=== PATIENT | female | born 1950 | race Caucasian/White ===

== ENCOUNTER 2016-07-24 22:41 | Emergency (ER) | payer OTHER, MEDICARE ==
[~2016-07-24] VITALS: Ht 160 cm; Wt 56.0 kg
[~2016-07-24 22:41] MED LIST: EYED; NXM/40 PO
[2016-07-24 22:43] VITALS: Ht 160 cm; Wt 56.0 kg
--- NOTE | 2016-07-25 00:18 | EMERGENCY ROOM VISIT NOTE ---
ED Visit Note First contact with patient: 23:00 Chief complaint: Right ankle pain. HPI: This 66-year-old white female presents to the emergency room for evaluation of her right ankle. The patient injured the ankle earlier this evening when she rolled her ankle 2 and inverted position. She had immediate onset of pain laterally. Swelling has developed. She denies any snaps or pops. Since that time, they have had persistent pain over the lateral portion of the ankle. They deny any numbness or tingling. Pain is worse with weight- bearing. She has been walking with a limp. no knee or hip pain. Treatment has consisted of ice provided in the ER. No prior history of significant ankle injury. Pain is 8/10. A male business continuity global director accompanies her today. REVIEW OF SYSTEM: HEENT: No dizziness, visual problems, hearing loss, tinnitus. There is no difficulty swallowing and no oral lesions are present. PULMONARY: No cough, shortness of breath, sputum production or hemoptysis. CARDIOVASCULAR: No chest pain, palpitations, shortness of breath or peripheral edema. GASTROINTESTINAL: No diarrhea, constipation, nausea, vomiting, or abdominal pain. GENITOURINARY: No dysuria, frequency, urgency or nocturia. NEUROLOGIC: No weakness, muscle tenderness, epilepsy or history of neurological problems. MUSCULOSKELETAL: No history of joint tenderness/swelling. No history of arthritis or arthralgias. SKIN: No rashes or lesions. PSYCHIATRIC: No history of depression or mental illness. ENDOCRINE: No history of diabetes, thyroid disorders, abnormal hair growth. PAST MEDICAL HISTORY: Supplemental sheet was reviewed and signed. Previous surgeries: None Medical history: Benign Current medications: None Allergies: Penicillin, sulfa drugs Family history: Noncontributory Social history: Retired. No tobacco use, positive EtOH use. PHYSICAL EXAM: Vitals: Afebrile. Reviewed and filed in patient's chart General: Well-developed, well-nourished, elderly white female, in obvious discomfort. No acute distress. She is sitting on a bed. Alert and oriented. Skin:Warm and dry with good turgor. No rashes or lesions. No erythema. The patient is not diaphoretic. No abrasions. Edema is present over the lateral ankle and midfoot. Musculoskeletal: Right ankle evaluation reveals no pain with palpation across the knee or proximal tibia or fibula. There is pain with palpation over the lateral malleolus and the lateral ligaments. No pain over the medial malleolus or deltoid ligament. Achilles' tendon is palpated to its entirety and found to be intact and without defect. Normal [place] test. No pain with palpation of the calcaneus, fifth metatarsal base, midfoot, forefoot, or toes. Motor function to the toes is intact and unremarkable. Motor function to the ankle is intact but range of motion is limited by pain. Strength is 5/5 for resisted motion. Positive anterior drawer, negative calcaneal tilt. Neurologic: Gross sensation is intact across all aspects of the foot and ankle via soft touch. Peripheral pulses are 2+. Data: Radiographic images of the ankle were obtained today and were reviewed by me as well as radiology. They are unremarkable for fracture or other bony abnormality. IMPRESSION: Right ankle sprain. PLAN: The patient was educated regarding today's findings. Conservative care measures were discussed. Patient was given compressigrip for edema control and will use this for the next 5 days. Ankle gel splint was also applied and will be used for support for the next 3 weeks. It may be removed for bathing and sleep. It should be used for a few additional weeks for sporting events only. Crutches were fitted and crutch instruction was reviewed. Discontinue crutch use when she is able to walk without a limp. Weight-bear as tolerable. Gentle motion daily. Ice and elevate intermittently over the next 3 days, after which they may switch to moist heat. Lower leg should be elevated at night during sleep. Tylenol and ibuprofen every 6 hours as needed for discomfort. Sprain handout was provided. Return to the ER for any acute changes. Follow-up with their PCP or orthopedist if not improving in 5 to 7 days. Current/Historical Medications Scheduled Esomeprazole Magnesium (Nexium), 40 MG PO DAILY Miscellaneous Medications Eye Drops (Eye Drops) Allergies Coded Allergies: Penicillins (Verified Allergy, Mild, UNKNOWN, 12/09/11) Sulfa Drugs (Verified Allergy, Mild, UNKNOWN, 12/09/11) Vital Signs Date Time Temp Pulse Resp B/P (MAP) Pulse Ox O2 Delivery O2 Flow Rate FiO2 07/24/16 22:43 36.6 76 16 155/88 100 Room Air Departure Information Impression Primary Impression: Right ankle sprain Dispostion Home / Self-Care Forms HOME CARE DOCUMENTATION FORM, MOTRIN USE, TYLENOL USE, IMPORTANT VISIT INFORMATION Patient Instructions [facility] Additional Instructions Use crutches until you can walk without a limp- weight-bear as tolerable Ice and elevate intermittently x3 days, and then use moist heat Tylenol and ibuprofen every 6 hours as needed for pain Gentle motion daily See your PCP or orthopedist if not improving over 5-7 days Use gel splint at all times other than bathing and sleep for 4 weeks, and then use it for an additional 2 weeks for any sporting activity
[2016-07-25 00:26] VITALS: BP 129/83; PULSE 71; TEMP 36.6; O2SAT 97
--- NOTE | 2016-07-25 06:38 | DIAGNOSTIC IMAGING REPORT ---
RIGHT ANKLE MIN 3 VIEWS ROUTINE CLINICAL HISTORY: Right ankle pain COMPARISON: None. DISCUSSION: No fractures or dislocations are visualized. There is an equivocal small joint effusion. IMPRESSION: Equivocal small joint effusion. No fractures are visualized. Electronically signed by: Dawit Tabor M.D. 07/25/2016 6:37 AM Dictated Date/Time: 07/25/2016 6:37 AM
== END 2016-07-25 00:27 | disposition home or self-care (01) ==
LOC: C.EDB 22:42 → C.EDC 07-25 00:27
DX: S93.401A Sprain of unspecified ligament of right ankle, initial encounter (principal); X58.XXXA Exposure to other specified factors, initial encounter; Z88.0 Allergy status to penicillin; Z88.2 Allergy status to sulfonamides

== ENCOUNTER → 2016-12-07 | Outpatient (CLI) | payer OTHER, MEDICARE ==
--- NOTE | 2016-12-10 07:59 | MAMMOGRAPHY REPORT ---
BILATERAL DIGITAL SCREENING MAMMOGRAM WITH CAD: 12/07/2016 CLINICAL HISTORY: Routine screening. TECHNIQUE: Bilateral CC, MLO and repeat left MLO views were obtained. Current study was also evaluat ed with a Computer Aided Detection (CAD) system. COMPARISON: Comparison is made to exams dated: 11/15/2014 mammogram, 11/21/2015 mammogram, 11/05/2013 m ammogram, 11/03/2012 mammogram, 11/03/2011 mammogram, and 10/29/2010 mammogram - [facility] enter. BREAST COMPOSITION: There are scattered areas of fibroglandular density in both breasts. FINDINGS: No new suspicious mass, architectural distortion or cluster of suspicious microcalcificati ons is seen. IMPRESSION: ACR BI-RADS CATEGORY 1: NEGATIVE There is no mammographic evidence of malignancy. A 1 year screening mammogram is recommended. The pa tient will receive written notification of the results. Approximately 10% of breast cancers are not detected with mammography. A negative mammographic report should not delay biopsy if a clinically suggestive mass is present. Anette Mitchell M.D. ay/:12/07/2016 15:16:48 [employer] Home Associate: Ghazala Guzmna RT(R)(M), letter sent: Normal 1/2 BI-RADS Code: ACR BI-RADS Category 1: Negative
== END | disposition home or self-care (01) ==
LOC: C.MAMM 14:36
PROVIDERS: ATTEND Obstetrics & Gynecology
DX: Z12.31 Encounter for screening mammogram for malignant neoplasm of breast (principal)

== ENCOUNTER → 2016-12-10 | Outpatient (CLI) | payer OTHER, MEDICARE | END | disposition home or self-care (01) | LOC: C.PAPS 09:40 | PROVIDERS: ATTEND Obstetrics & Gynecology | DX: Z12.4 Encounter for screening for malignant neoplasm of cervix (principal); N95.2 Postmenopausal atrophic vaginitis ==

== ENCOUNTER → 2017-03-09 | Day surgery (SDC) | payer OTHER, MEDICARE ==
[2017-03-08 10:15] VITALS: BMI 22.0
[~2017-03-09] VITALS: Ht 160 cm; Wt 56.8 kg
[~2017-03-09] MED LIST changes: +ASPCH81X PO; +CLB/200 PO; +CYCL0.052 OPB; +DOXY50CA26 PO; +ESOM20CA PO; -EYED; +LATA0.5S OPB; +LIDOCAINE HCL 2% 2 ML VIAL (20MG/ML) ONE; +METO50TA7 PO; +METR0.754 TOP; +MULT1CAP53 PO; -NXM/40 PO; +ONDANSETRON INJ 2 MG/ML 2 ML VIAL IV PRN; +PROPOFOL IV EMULSION 10 MG/ML 20 ML VIAL IV ONE
[2017-03-09 13:32] VITALS: Ht 160 cm; Wt 56.8 kg
--- NOTE | 2017-03-09 13:58 | Endo History and Physical ---
History & Physical Date of Service: Mar 09, 2017. Chief Complaint: SCREENING FOR COLON CANCER Referring Physician: DR FERRARI History of Present Illness Patient presenting for colorectal cancer screening. She has no specific complaints today. Past Surgical History Hx Cardiac Surgery: No Hx Internal Defibrillator: No Hx Pacemaker: No Hx Abdominal Surgery: Yes (OVARIAN CYST REMOVAL) Hx of Implantable Prosthesis: No Hx Post-Op Nausea and Vomiting: No Hx Cancer Surgery: No Hx Thoracic Surgery: No Hx Orthopedic: No Hx Urinary Tract Surgery: No Family History None Social History Smoking Status: Never Smoker Hx Substance Use: No Hx Alcohol Use: Yes (ONE GLASS OF RED WINE DAILY) Allergies Coded Allergies: Penicillins (Verified Allergy, Mild, HIVES, 03/08/17) Sulfa Drugs (Verified Allergy, Mild, HIVES, 03/08/17) Current Medications Reported Home Medications Medications Dose Route/Sig Max Daily Dose Days Date Category Macular Health Formula (Multiple Vitamins W/ Minerals) 1 Cap Cap 1 Cap PO DAILY 03/09/17 Reported Aspirin Chewable (Aspirin) 81 Mg Chew 81 Mg PO DAILY WITH A MEAL 03/08/17 Reported CeleBREX (Celecoxib) 200 Mg Cap 200 Mg PO QPM 03/08/17 Reported Toprol-Xl (Metoprolol Succinate) 50 Mg Tabcr 50 Mg PO QPM 03/08/17 Reported Metrocream (Metronidazole (Topical)) 0.75 % Cre 1 Appln TOP DAILY PRN 03/08/17 Reported Doxycycline (Doxycycline (Monohydrate)) 50 Mg Cap 1 Cap PO DAILY PRN 03/08/17 Reported Xalatan 0.005% Oph Tona (Latanoprost) 0.005 % Tona 1 Drops OPB HS 03/08/17 Reported Restasis (Cyclosporine (Ophth)) 0.05 % Emu 1 Drop OPB BID 03/08/17 Reported Nexium (Esomeprazole Magnesium) 20 Mg Capcr 20 Mg PO QAM 03/08/17 Reported Vital Signs Weight (Kilograms): 56.82 Height (Feet): 5 Height (Inches): 3 Date Time Temp Pulse Resp B/P (MAP) Pulse Ox O2 Delivery O2 Flow Rate FiO2 03/09/17 13:32 36.6 81 16 148/89 (108) 100 Room Air Physical Exam General Appearance: no apparent distress Respiratory/Chest: Auscultation: breath sounds normal Cardiovascular: Heart Auscultation: RRR Abdomen: Inspection & Palpation: soft Assessment and Plan Patient to undergo colonoscopy for colorectal cancer screening. We have discussed the risks to include bleeding, infection, perforation and missed colonic polyps.
--- NOTE | 2017-03-09 14:29 | Discharge Instructions ---
Endoscopy Patient Instructions Date / Procedure(s) Performed Mar 09, 2017. Colonoscopy Allergy Information Coded Allergies: Penicillins (Verified Allergy, Mild, HIVES, 03/08/17) Sulfa Drugs (Verified Allergy, Mild, HIVES, 03/08/17) Discharge Date / Findings Mar 09, 2017. Diverticulosis of the sigmoid colon Hemorrhoids Medication Instructions Stopped Medication(s): ASPIRIN LAST DOSE 03/07/17 Reported Home Medications Medications Dose Route/Sig Max Daily Dose Days Date Category Macular Health Formula (Multiple Vitamins W/ Minerals) 1 Cap Cap 1 Cap PO DAILY 03/09/17 Reported Aspirin Chewable (Aspirin) 81 Mg Chew 81 Mg PO DAILY WITH A MEAL 03/08/17 Reported CeleBREX (Celecoxib) 200 Mg Cap 200 Mg PO QPM 03/08/17 Reported Toprol-Xl (Metoprolol Succinate) 50 Mg Tabcr 50 Mg PO QPM 03/08/17 Reported Metrocream (Metronidazole (Topical)) 0.75 % Cre 1 Appln TOP DAILY PRN 03/08/17 Reported Doxycycline (Doxycycline (Monohydrate)) 50 Mg Cap 1 Cap PO DAILY PRN 03/08/17 Reported Xalatan 0.005% Oph Tona (Latanoprost) 0.005 % Tona 1 Drops OPB HS 03/08/17 Reported Restasis (Cyclosporine (Ophth)) 0.05 % Emu 1 Drop OPB BID 03/08/17 Reported Nexium (Esomeprazole Magnesium) 20 Mg Capcr 20 Mg PO QAM 03/08/17 Reported Provider Instructions Activity Restrictions - No exercising or heavy lifting for 24 hours. - Do not drink alcohol the day of the procedure. - Do not drive a car or operate machinery until the day after the procedure. - Do not make any important decisions or sign important papers in 24 hours after the procedure. Following Day: - Return to full activity which may include returning to work/school. Diet Start your diet with liquids and light foods (jello, soup, juice, toast). Then eat your usual diet if not nauseated. Treatment For Common After Affects For mild abdominal pain, bloating, or excessive gas: - Rest - Eat lightly - Lie on right side Follow-Up Information Follow-up with DR FERRARI as scheduled Repeat colonoscopy in 10 years Anesthesia Information What You Should Know You have had a procedure that required some medicine to reduce anxiety and discomfort. This treatment is called moderate sedation. After receiving the treatment, you may be sleepy, but you will be able to breathe on your own. The effects of the treatment may last for several hours. Follow these instructions along with Activity/Diet recommendations noted above: * Do NOT do anything where dizziness or clumsiness would be dangerous. * Rest quietly at home today, then you can be up and about tomorrow. * Have a responsible person stay with you the rest of today. * You may have had an I.V. today. If so, you may take the dressing off later today. Recommendations Call your doctor if: * Trouble breathing * Continuous vomiting for more than 24 hours * Temperature above 101 degrees * Severe abdominal pain or bloating * Pain not relieved by pain medicine ordered * There is increased drainage or redness from any incision * A large amount of rectal bleeding greater than 2-3 tablespoons. (If you had a polyp/s removed or have hemorrhoids, a small amount of blood - from the rectum is to be expected.) * You have any unanswered questions or concerns. IN THE EVENT OF A SERIOUS EMERGENCY, GO TO THE NEAREST EMERGENCY ROOM Your discharge instructions were prepared by provider Vernon Villagomez. Patient Instructions Signature Page Ashley Puente Patient (or Guardian) Signature/Date: I have read and understand the instructions given to me by my caregivers. Caregiver/RN/Doctor Signature/Date: The above-named patient and/or guardian has received patient instructions on this date. + Original Patient Signature Page (only) stays with chart. Please make copy for patient.
--- NOTE | 2017-03-09 14:33 | GI REPORT ---
Procedure Date: 03/09/2017 2:06 PM Procedure: Colonoscopy Indications: Screening for colorectal malignant neoplasm Medicines: Monitored Anesthesia Care Complications: No immediate complications. Estimated blood loss: Minimal. Estimated Blood Loss: Estimated blood loss was minimal. Procedure: Pre-Anesthesia Assessment: - Prior to the procedure, a History and Physical was performed, and patient medications, allergies and sensitivities were reviewed. The patient's tolerance of previous anesthesia was reviewed. - The risks and benefits of the procedure and the sedation options and risks were discussed with the patient. All questions were answered and informed consent was obtained. - Patient identification and proposed procedure were verified prior to the procedure by the physician, the nurse and the special weapons unit officer. The procedure was verified in the procedure room. - Pre-procedure physical examination revealed no contraindications to sedation. - ASA Grade Assessment: II - A patient with mild systemic disease. - After reviewing the risks and benefits, the patient was deemed in satisfactory condition to undergo the procedure. - The anesthesia plan was to use monitored anesthesia care (MAC). - Immediately prior to administration of medications, the patient was re-assessed for adequacy to receive sedatives. - The heart rate, respiratory rate, oxygen saturations, blood pressure, adequacy of pulmonary ventilation, and response to care were monitored throughout the procedure. - The physical status of the patient was re-assessed after the procedure. After I obtained informed consent, the scope was passed under direct vision. Throughout the procedure, the patient's blood pressure, pulse, and oxygen saturations were monitored continuously. The scope was introduced through the anus and advanced to the terminal ileum. The colonoscopy was somewhat difficult due to significant looping and a tortuous colon. Successful completion of the procedure was aided by withdrawing the scope and replacing with the pediatric colonoscope, straightening and shortening the scope to obtain bowel loop reduction and applying abdominal pressure. The patient tolerated the procedure well. The quality of the bowel preparation was good. Findings: The digital rectal exam findings include non-thrombosed external hemorrhoids. Pertinent negatives include normal sphincter tone. The terminal ileum appeared normal. Normal cecal retroflexion A few medium-mouthed diverticula were found in the sigmoid colon. Internal hemorrhoids were found during retroflexion. The hemorrhoids were moderate. The exam was otherwise without abnormality. Impression: - Non-thrombosed external hemorrhoids found on digital rectal exam. - The examined portion of the ileum was normal. - Mild diverticulosis in the sigmoid colon. - Internal hemorrhoids. - The examination was otherwise normal. - No specimens collected. Recommendation: - Discharge patient to home (ambulatory). - Advance diet as tolerated today. - Repeat colonoscopy in 10 years for screening purposes. - Return to GI office PRN. Vernon Villagomez D.O. Vernon Villagomez, 03/09/2017 2:32:32 PM This report has been signed electronically. Note Initiated On: 03/09/2017 2:06 PM I attest to the content of the Intraoperative Record and orders documented therein, exceptions below
--- NOTE | 2017-03-09 15:01 | Anesthesiology Progress Note ---
Anesthesia Post Op Note Date & Time Mar 09, 2017 at 15:01 Vital Signs Pain Intensity: 0 Vital Signs Past 12 Hours Date Time Temp Pulse Resp B/P (MAP) Pulse Ox O2 Delivery O2 Flow Rate FiO2 03/09/17 14:47 61 18 135/86 (102) 100 Room Air 03/09/17 14:32 36.6 74 16 120/65 (83) 97 Room Air 03/09/17 13:32 36.6 81 16 148/89 (108) 100 Room Air Notes Mental Status: alert / awake / arousable, participated in evaluation Pt Amnestic to Procedure: Yes Nausea / Vomiting: adequately controlled Pain: adequately controlled Airway Patency, RR, SpO2: stable & adequate BP & HR: stable & adequate Hydration State: stable & adequate Anesthetic Complications: no major complications apparent
[2017-03-09 15:02] VITALS: BP 133/83; PULSE 56; O2SAT 96
== END | disposition home or self-care (01) ==
LOC: C.GI 12:48
PROVIDERS: ATTEND Internal Medicine Gastroenterology
DX: Z12.11 Encounter for screening for malignant neoplasm of colon (principal); Z79.82 Long term (current) use of aspirin; Z79.899 Other long term (current) drug therapy; K64.4 Residual hemorrhoidal skin tags; K57.30 Diverticulosis of large intestine without perforation or abscess without bleeding; K64.8 Other hemorrhoids

== ENCOUNTER 2022-08-25 13:23 | Inpatient (IN) ==
[2022-08-25] MEDS ORDERED: MAGNESIUM HYDROXIDE SUSP 30 ML UDC PO PRN (13:38)
[2022-08-25] MEDS ORDERED: ONDANSETRON INJ 2 MG/ML 2 ML VIAL IV PRN (13:38)
[2022-08-25] MEDS ORDERED: POLYETHYLENE (MIRALAX) 17 GM PACK PO PRN (13:38)
[2022-08-25] MEDS ORDERED: ALUMINUM/MAGNESIUM SUSP 30 ML UDC PO PRN (13:38)
[2022-08-25] MEDS ORDERED: ACETAMINOPHEN 325 MG TAB PO PRN (13:38)
--- NOTE | 2022-08-25 14:05 | History & Physical Report ---
Date of Service August 25, 2022 Assessment & Plan (1) Cellulitis of left foot: (2) Status post left foot surgery: (3) Failure of outpatient treatment: (4) Hyponatremia: (5) Anemia: Plan This is a 72-year-old female with significant past medical history of paroxysmal ventricular tachycardia, PVC, rosacea, HTN and osteopenia who presents for direct admission secondary to left foot cellulitis. Pt is s/p Left Foot First Tarsometatarsal Fusion with Lapiplasty plates, Second Paco osteotomy, Second DuVries arthroplasty, Second Extensor tendon lengthening, capsulotomy second metatarsal phalangeal joint on 07/30/22. Approx 5 days Ago noted increased swelling, redness and drainage at surgical incision site and dorsal aspect of left foot. Was seen in urgent care on 08/22 and wound culture was obtained growing Enterococcus sensitive to ampicillin and vancomycin. Dr. Hoffman placed patient on Keflex without improvement, she has failed outpatient antibiotic therapy and therefore being admitted for IV antibiotics. Left foot cellulitis Status post left foot surgery on 07/30/2022 Failure of outpatient Patient directly admitted to medical Consult Dr. Hoffman - discussed case with him prior to patient arrival Wound culture per outpatient setting growing Enterococcus, sensitive to ampicillin and vancomycin We will start patient on IV vancomycin Baseline labs obtained Per patient imaging obtained as outpatient on 08/23 ESR and CRP are normal, will defer further imaging to Dr. Hoffman Patient is able to bear weight on left foot with boot in place Consult wound care Obtain blood culture and wound culture Hyponatremia Sodium 131 Patient also with elevation in BUN and ratio Slightly on dry side We will give 1 L of IV fluid, repeat BMP in a.m. Anemia Obtain anemia panel in a.m. Per operative report blood loss to 2ml no s/sx of bleeding HTN Continue losartan Hyperlipidemia Continue statin Rosacea On doxycycline as outpatient, will hold while on IV antibiotic DVT ppx: SQ Lovenox Dispo: admit to medical, Dr. Hoffman to see in am. FULL CODE PCP: Dr. Kerr Pt was seen and examined in collaboration with Dr. Jones, please see addendum A total of 75 was spent coordinating, documenting, and providing care for this patient excluding time spent in the performance of separately billed services. This included personally viewing all current laboratories and imaging studies, medication reconciliation, outpatient chart review, and discussion with specialists. History of Present Illness Chief Complaint: Direct admission for L foot cellulitis Primary Care Provider: Francesca Cotton PA-C This is a 72-year-old female with significant past medical history of paroxysmal ventricular tachycardia, PVC, rosacea, HTN and osteopenia who presents for direct admission secondary to left foot cellulitis. Of significance patient underwent orthopedic procedure on 07/30/[address] Hoffman with a left foot first tarsometatarsal fusion with Lapiplasty plates, second Paco osteotomy, second Leela arthroplasty, second extensor tendon lengthening, capsulotomy second metatarsal phalangeal joint, modified Ordonez hallux valgus correction and first metatarsal phalangeal joint cheilectomy. Patient was seen in urgent care on 08/22 secondary to redness, warmth, drainage and swelling to the left foot. Symptoms started 5 days prior to ED evaluation. She was started on oral doxycycline and culture was obtained. According to outpatient records cultures positive for Enterococcus sensitive to ampicillin and vancomycin. Dr. Hoffman contacted hospitalist economic manager for direct admission for failed outpt treatment for cellulitis. Per Dr. Hoffman pt was also trialed on keflex without significant improvement. According to patient approximately 5 days ago she noticed increased swelling, redness and drainage from her incision site over the top of her left foot. She tried to contact Dr. Hoffman and after rechecking on Tuesday was told to take dressing off. After being seen in urgent care she was prescribed doxycycline; however, she then received a phone call from Dr. Hoffman and was prescribed Keflex. She never did start the doxycycline and has since been on Keflex without any improvement. She feels overall her foot may be a little bit more swollen and red since starting the Keflex. She was seen in clinic on 08/23 and per patient x-rays were obtained. Due to worsening symptoms she was referred here. She is currently ambulating with boot in place. She denies any fever, chills, sweats, lightheadedness, dizziness, chest pain, shortness breath, nausea, vomiting, abdominal pain. Allergies Allergy/AdvReac Type Severity Reaction Status Date / Time Penicillins Allergy Intermediate HIVES Verified 07/30/22 06:23 Sulfa (Sulfonamide Allergy Intermediate HIVES Verified 07/30/22 06:23 Antibiotics) Home Medications Medication Instructions Recorded Confirmed Type carvedilol 6.25 mg tablet 6.25 mg PO BID 01/03/21 08/25/22 History cyclosporine 0.05 % eye drops in a 1 drp ophthalmic (eye) DIRECTED 01/03/21 08/25/22 History dropperette (Restasis) PRN Dry Eyes doxycycline hyclate 50 mg capsule 50 mg PO QAM 01/03/21 08/25/22 History losartan 25 mg tablet 50 mg PO BID 01/03/21 08/25/22 History [id number] 5 mg-zeaxanth 1 cap PO QAM 01/03/21 08/25/22 History 1 mg-bilberry 7.5 mg-herbal capsule ([facility] Formula) rosuvastatin 10 mg tablet 20 mg PO HS 01/03/21 08/25/22 History oxyquinoline 0.025 %-sodium lauryl See Rx Instructions vaginal 07/15/22 08/25/22 Rx sulfate 0.01 % vaginal gel .COMPLEX #113.4 grams (Trimo-Ha Jelly) celecoxib 200 mg capsule (Celebrex) 200 mg PO QAM 07/27/22 08/25/22 History cholecalciferol (vitamin D3) 50 50 mcg PO QAM 07/27/22 08/25/22 History mcg (2,000 unit) capsule (Vitamin D3) timolol maleate 1 dose ophthalmic (eye) BID 07/27/22 08/25/22 History Past Med/Surg History Medical History Atypical squamous cells of undetermined significance (ASC-US) on cervical Pap smear 02/01/01 Glaucoma Herpes simplex HLD (hyperlipidemia) HTN (hypertension) Non-compaction cardiomyopathy see [facility] cardio records, pt without advised ICD, follows with Tio Sutherland PA-C. PVCs (premature ventricular contractions) Surgical History H/O abdominoplasty H/O colposcopy with cervical biopsy H/O LEEP [facility] 2001 H/O ovarian cystectomy History of colonoscopy History of cryosurgery S/P removal of lung right middle lobectomy for suspicious nodule. unable to biopsy due to location. benign Family History Father Stroke syndrome Mother Thrombophlebitis Denies family history of Ovarian cancer Breast cancer Colorectal cancer Uterine cancer Social History Smoking Status: Never smoker Second Hand Exposure: No; Do You Dip or Chew Tobacco: No; Hx Alcohol Use: Yes Alcohol type: wine Hx Substance Use: No Preferred Language: Sinhala Communication Ability: Effective Cell Room Operator Required: No Beliefs That Will Affect Care: None Current Living Situation: Spouse Other Information That Helps Us Care for You: Yes Feels Safe at Home: Yes Safety Concerns: Feels Safe At This Time Assistive Devices: Contacts Review of Systems Review of Systems: All systems reviewed & are unremarkable except as noted in HPI & below Physical Exam Physical Exam: Constitutional: WD/WN, vitals as above, NAD, sitting up in bed, pleasant, conversing easily Head: Normocephalic, Atraumatic Eyes: PERRL, conjunctivae normal, anicteric sclerae ENMT: external ear and nose normal, oropharynx normal Neck: trachea midline, no thyromegaly normal visual inspection Respiratory: normal respiratory effort, lungs clear to auscultation, no wheeze, rales, rhonchi. Normal insp/exp effort, no accessory muscle use Cardiovascular: RRR, no murmur, no edema Vessels: no JVD or carotid bruit Chest: normal inspection of chest Abdomen: normal bowel sounds, soft, nontender, no hepatosplenomegaly Musculoskeletal: no cyanosis or clubbing, extremities motor strength 5/5 Skin: no rashes, warm and dry normal turgor +incision x 4 dorsum of left found with purulent drainage, erythema, warmth, bruising to medial malleolar region with streaking to proximal tibial area Neurologic: PERRL, EOMI, accommodation nl, no face palsy, no dysarthria CN's II-XI intact bilaterally and moves all extremities Psychiatric: A+Ox3, euthymic affect Lymphatic: no cervical or axillary lymphadenopathy : deferred Results & Data Results & Data Vital Signs (Past 12 Hours) Vital Signs Temp Pulse Resp BP Pulse Ox O2 Del Method 36.6 C 76 16 119/80 100 Room Air 08/25/22 14:55 08/25/22 14:55 08/25/22 14:55 08/25/22 14:55 08/25/22 14:55 08/25/22 14:55 Laboratory Results Short CBC 08/25/22 Range/Units 15:16 WBC 9.36 (4.8-10.8) K/ul Hgb 11.7 L (12.0-16.0) g/dl Hct 34.5 L (37.0-47.0) % Plt Count 305 (130-400) K/uL BMP 08/25/22 15:25 Sodium 131 L Potassium 4.2 Chloride 98 Carbon Dioxide 26 BUN 24 H Creatinine 1.06 Glucose 93 Calcium 9.5 Liver Function 08/25/22 Range/Units 15:25 Total Bilirubin 0.6 (0.2-1.0) mg/dl AST 18 (13-39) U/L ALT 14 (7-52) U/L Alkaline Phosphatase 34 (34-104) U/L Albumin 4.7 (3.4-5.0) gm/dl Medications Administered Current Inpatient Medications Acetaminophen (Acetaminophen 325 Mg Tab) 650 mg PO Q4H PRN PRN Reason: pain/fever Stop: 09/24/22 13:37 Al Hydrox/Mg Hydrox/Simethicone (Aluminum/Magnesium Susp 30 Ml Udc) 30 ml PO Q6H PRN PRN Reason: Dyspepsia Stop: 09/24/22 13:37 Carvedilol (Carvedilol 6.25 Mg Tab) 6.25 mg PO BIDM LAURY Stop: 09/24/22 16:59 Enoxaparin Sodium (Enoxaparin Inj 40 Mg/0.4 Ml Syr) 40 mg SQ HS LAURY Stop: 09/24/22 20:59 Losartan Potassium (Losartan Potassium 50 Mg Tab) 50 mg PO BID LAURY Stop: 09/24/22 20:59 Magnesium Hydroxide (Magnesium Hydroxide Susp 30 Ml Udc) 30 ml PO Q6H PRN PRN Reason: Constipation Stop: 09/24/22 13:37 Miscellaneous (Cyclosporine [Restasis] ~ Order Awaiting Action) 1 each N/A QS LAURY Stop: 09/24/22 15:59 Ondansetron HCl (Ondansetron Inj 2 Mg/Ml 2 Ml Vial) 4 mg IV Q6H PRN PRN Reason: Nausea Stop: 09/24/22 13:37 Polyethylene Glycol (Polyethylene (Miralax) 17 Gm Pack) 17 gm PO DAILY PRN PRN Reason: Constipation Stop: 09/24/22 13:37 Rosuvastatin Calcium (Rosuvastatin Calcium 20 Mg Tab) 20 mg PO HS LAURY Stop: 09/24/22 20:59 Timolol Maleate (Timolol Maleate 0.25% Op Soln 5 Ml Btl) 1 drops OP BID LAURY Stop: 09/24/22 20:59 Vitamin D (Cholecalciferol 1,000 Units 25 Mcg Tab) 2,000 units PO QAM LAURY Stop: 09/25/22 08:59 Code Status & VTE Plan Code Status FULL CODE Supervising Physician Co-Signing Physician Notes Patient seen and examined independently. Discussed with above provider. Patient was directly admitted for concern of cellulitis. She had undergone left Foot First Tarsometatarsal Fusion with Lapiplasty plates, Second Paco osteotomy, Second DuVries arthroplasty, Second Extensor tendon lengthening, capsulotomy second metatarsal phalangeal joint on 07/30/22. Was seen in urgent care on 08/22 and wound culture was obtained growing Enterococcus sensitive to ampicillin and vancomycin. Dr. Hoffman placed patient on Keflex without improvement, she has failed outpati ent antibiotic therapy and therefore being admitted for IV antibiotics. Outpatient x-ray done; no significant finding. CRP and ESR normal; less likely abscess or osteomyelitis. Started on IV vancomycin Wound care consult Appreciate orthopedic input.
[2022-08-25 16:18] LABS: Alanine Aminotransferase 14 U/L (7-52); Albumin Globulin Ratio 2.1 (0.9-2); Albumin Level 4.7 gm/dl (3.4-5.0); Alkaline Phosphatase 34 U/L (34-104); Anion Gap 7 (3-11); Aspartate Aminotransferase 18 U/L (13-39); BUN Creatinine Ratio 22.6 (10-20); Bilirubin,Total 0.6 mg/dl (0.2-1.0); Blood Urea Nitrogen 24 mg/dl (6-23); C Reactive Protein < 0.50 mg/dl (0-0.5); Calcium 9.5 mg/dl (8.6-10.3); Carbon Dioxide 26 mmol/L (21-32); Chloride 98 mmol/L (98-107); Creatinine Clr Calc Pharmacy 41.8 ml/min; Est GFR (African American) 59.9 ml/min; Est GFR (Non-African American) 51.7 ml/min; Globulin 2.2 gm/dl (2.5-4.0); Glucose 93 mg/dl (70-99(Fasting)); Potassium 4.2 mmol/L (3.5-5.1); Sodium 131 mmol/L (136-145); Total Protein 6.9 gm/dl (6.0-8.3)
[2022-08-25 16:38] LABS: Basophils # (auto) 0.05 K/uL (0-0.2); Basophils % (auto) 0.5 %; Eosinophils # (auto) 0.68 K/uL (0-0.50); Eosinophils % (auto) 7.3 %; Hematocrit (blood only) 34.5 % (37.0-47.0); Hemoglobin 11.7 g/dl (12.0-16.0); Immature Granulocytes # (auto) 0.02 K/uL (0.01-0.20); Immature Granulocytes % (auto) 0.2 %; Lymphocytes # (auto) 1.72 K/uL (1.2-3.4); Lymphocytes % (auto) 18.4 %; Mean Corpuscular Hemoglobin 29.8 pg (25.0-34.0); Mean Corpuscular Hgb Conc 33.9 g/dL (32.0-36.0); Mean Corpuscular Volume 87.8 fL (80.0-100.0); Monocytes # (auto) 0.83 K/uL (0.11-0.59); Monocytes % (auto) 8.9 %; Neutrophils # (auto) 6.06 K/uL (1.40-6.50); Neutrophils % (auto) 64.7 %; Platelet Count 305 K/uL (130-400); RDW Coefficient of Variation 12.5 % (11.5-14.5); RDW Standard Deviation 40.3 fL (36.4-46.3); Red Blood Count 3.93 M/uL (4.20-5.40); White Blood Count 9.36 K/ul (4.8-10.8)
[2022-08-25] MEDS ORDERED: VANCOMYCIN CONSULT ACTIVE PRN (16:55)
[2022-08-25] MEDS ORDERED: SODIUM CHLORIDE 0.9% 1000ML 1,000 ML IV SCH ×2 (16:56→17:00)
[2022-08-25] MEDS ORDERED: carvediloL 6.25 MG TAB PO SCH (17:00)
[2022-08-25] MEDS ORDERED: oxyCODONE HCL IR 5 MG TAB (IMMEDIATE RELEASE) PO PRN (17:09)
[2022-08-25] MEDS ORDERED: VANCOMYCIN HCL 1,250 MG in SODIUM CHLORIDE 0.9% 250 ML IV ONE ×2 (17:15→19:00)
--- NOTE | 2022-08-25 19:19 | Pharmacy Report ---
Pharmacy PK ABX Note - Date of Service August 25, 2022 - Assessment and Plan Assessment 72 year old F receiving Vancomycin for treatment of left foot cellulitis. Pertinent microbiologic data includes: Unsuccessful outpatient treatment with Keflex 500mg QID starting on 08/22 (respective outpt wound culture grew Enterococcus sensitive to vancomycin and ampicillin), inpatient wound and blood cultures growing. Day # 1/? of IV antimicrobial therapy. Plan Vancomycin * Loading dose: 1250 mg IV x 1 * Maintenance dose: 1000 mg IV every 24 hours * Regimen is predicted to achieve target AUC/JONATHAN of 400-600 mg/L.hr * Level to be drawn at a later date if prolonged vancomycin use anticipated. Pharmacy will continue to follow and will adjust dose/frequency as necessary. Thank you. Pharmacy has transitioned to AUC monitoring for vancomycin. AUC/JONATHAN is the pre ferred PK/PD target and is associated with decreased risk of nephrotoxicity compared to traditional trough targets.
[2022-08-25] MEDS: ROSUVASTATIN CALCIUM 20 MG TAB PO SCH (22:14)
[2022-08-25] MEDS: TIMOLOL MALEATE 0.25% OP SOLN 5 ML BTL OP SCH (22:15)
[2022-08-25] MEDS: ENOXAPARIN INJ 40 MG/0.4 ML SYR SQ SCH ×2 (22:15→22:19)
[2022-08-25] MEDS: LOSARTAN POTASSIUM 50 MG TAB PO SCH (22:15)
[2022-08-25] MEDS: carvediloL 6.25 MG TAB PO SCH (22:15)
[2022-08-26] MEDS ORDERED: VANCOMYCIN HCL 1,000 MG in SODIUM CHLORIDE 0.9% 250 ML IV SCH (05:00)
[2022-08-26 06:14] LABS: BUN Creatinine Ratio 21.8 (10-20); Calcium 8.4 mg/dl (8.6-10.3); Creatinine Clr Calc Pharmacy 50.9 ml/min; Est GFR (African American) 76.1 ml/min; Est GFR (Non-African American) 65.6 ml/min
[2022-08-26 06:16] LABS: Basophils # (auto) 0.03 K/uL (0-0.2); Basophils % (auto) 0.4 %; Eosinophils # (auto) 0.59 K/uL (0-0.50); Eosinophils % (auto) 8.8 %; Hematocrit (blood only) 28.8 % (37.0-47.0); Hemoglobin 9.8 g/dl (12.0-16.0); Immature Granulocytes # (auto) 0.01 K/uL (0.01-0.20); Immature Granulocytes % (auto) 0.1 %; Lymphocytes # (auto) 2.42 K/uL (1.2-3.4); Lymphocytes % (auto) 36.1 %; Mean Corpuscular Hemoglobin 29.7 pg (25.0-34.0); Mean Corpuscular Volume 87.3 fL (80.0-100.0); Mean Platelet Volume 8.7 fL (9.4-12.4); Monocytes # (auto) 0.77 K/uL (0.11-0.59); Monocytes % (auto) 11.5 %; Neutrophils # (auto) 2.88 K/uL (1.40-6.50); Neutrophils % (auto) 43.1 %; Platelet Count 252 K/uL (130-400); RDW Coefficient of Variation 12.4 % (11.5-14.5); RDW Standard Deviation 40.2 fL (36.4-46.3)
[2022-08-26 06:32] LABS: Ferritin 122.6 ng/ml (8-388)
[2022-08-26 06:38] LABS: Folate (Folic Acid),Ser orPlas 13.19 ng/ml (>5.38)
[2022-08-26] MEDS ORDERED: ARTIFICIAL TEARS OP PRN (08:45)
[2022-08-26] MEDS: TIMOLOL MALEATE 0.25% OP SOLN 5 ML BTL OP SCH ×2 (09:05→20:48)
[2022-08-26] MEDS: LOSARTAN POTASSIUM 50 MG TAB PO SCH ×2 (09:06→20:47)
[2022-08-26] MEDS: carvediloL 6.25 MG TAB PO SCH ×2 (09:06→20:47)
[2022-08-26] MEDS: CHOLECALCIFEROL 1,000 UNITS 25 MCG TAB PO SCH (09:07)
--- NOTE | 2022-08-26 09:15 | Hospitalist Progress Note ---
Date of Service August 26, 2022 Assessment & Plan (1) Cellulitis of left foot: (2) Status post left foot surgery: (3) Failure of outpatient treatment: (4) Hyponatremia: (5) Anemia: Plan 72yoF with significant PMHx of paroxysmal ventricular tachycardia, PVC, rosacea, HTN and osteopenia who presents for direct admission secondary to left foot cellulitis after recent orthopedic procedure. Left foot cellulitis Status post left foot surgery on 07/30/2022 Failure of outpatient Patient directly admitted to medical Consulted Dr. Hoffman Wound culture per outpatient setting growing Enterococcus, sensitive to ampicillin and vancomycin, continue with Vanc. will defer further imaging to Dr. Hoffman Patient is able to bear weight on left foot with boot in place Consult wound care Follow blood culture and wound culture Hyponatremia Stable Anemia Stable HTN Continue losartan Hyperlipidemia Continue statin Rosacea On doxycycline as outpatient, will hold while on IV antibiotic DVT ppx: SQ Lovenox Dispo: med/surg. FULL CODE PCP: Dr. Kerr Admission and Anticipated Discharge Date Admission Date: August 25, 2022 Subjective Seen with partner at bedside. States she is doing well but wanted to point out the start of an itchy rash on the LLE. Declined a topical steroid stating it was not too bad. Denied fevers, chills or night sweats. Review of Systems Review of Systems: All systems reviewed & are unremarkable except as noted in Subjective Physical Exam Physical Exam: General: Alert, oriented. No acute distress Skin: maculopapular eruption on LLE near bandage Psych: Appropriate mood and affect Neuro: No gross deficits HEENT: NC/AT CV: RRR, Normal s1, s2. No murmurs appreciated Resp: Breath sounds clear bilaterally, no increased effort of breathing. No crackles/rhonchi/rales. Abdomen: Soft, nontender, nondistended. No guarding. No organomegaly appreciated. Extremities: No edema in lower extremities bilaterally. bandage on LLE Results & Data Results & Data Vital Signs (Past 12 Hours) Vital Signs Temp Pulse Pulse Resp BP BP Pulse Ox 08/26/22 07:01 36.5 C 67 16 148/85 H 99 08/26/22 05:34 66 133/80 08/25/22 22:11 76 159/94 H O2 Del Method 08/26/22 07:01 Room Air 08/26/22 05:34 08/25/22 22:11
--- NOTE | 2022-08-26 14:13 | Pharmacy Report ---
Pharmacy PK ABX Note - Date of Service August 26, 2022 - Assessment and Plan Assessment 72 year old F receiving Vancomycin for treatment of left foot cellulitis. Pertinent microbiologic data includes: Unsuccessful outpatient treatment with Keflex 500mg QID starting on 08/22 (respective outpt wound culture grew Enterococcus sensitive to vancomycin and ampicillin), inpatient wound culture shows pinpoint growth and blood cultures currently NGTD Day # 2 of IV antimicrobial therapy. Plan Vancomycin * Loading dose: 1250 mg IV x 1 * Maintenance dose: 1000 mg IV every 24 hours * Random level of 16.6 mg/L @ 1250 shows that above regimen could result in subtherapeutic levels. Increase to vancomycin 1000 mg IV q18 hours * Regimen is predicted to achieve target AUC/JONATHAN of 400-600 mg/L.hr * Level to be drawn at a later date if prolonged vancomycin use anticipated. Pharmacy will continue to follow and will adjust dose/frequency as necessary. Thank you. Pharmacy has transitioned to AUC monitoring for vancomycin. AUC/JONATHAN is the preferred PK/PD target and is associated with decreased risk of nephrotoxicity compared to traditional trough targets.
[2022-08-26] MEDS: ROSUVASTATIN CALCIUM 20 MG TAB PO SCH (20:47)
[2022-08-26] MEDS: ENOXAPARIN INJ 40 MG/0.4 ML SYR SQ SCH (20:49)
[2022-08-26] MEDS: VANCOMYCIN HCL 1,000 MG in SODIUM CHLORIDE 0.9% 250 ML IV SCH (23:16)
[2022-08-27 07:55] LABS: Creatinine Clr Calc Pharmacy 49.2 ml/min
[2022-08-27] MEDS: carvediloL 6.25 MG TAB PO SCH ×2 (08:07→21:43)
[2022-08-27] MEDS: LOSARTAN POTASSIUM 50 MG TAB PO SCH ×2 (08:07→21:44)
[2022-08-27] MEDS: CHOLECALCIFEROL 1,000 UNITS 25 MCG TAB PO SCH (08:07)
[2022-08-27] MEDS: TIMOLOL MALEATE 0.25% OP SOLN 5 ML BTL OP SCH ×2 (08:08→21:45)
[2022-08-27 09:03] LABS: Basophils # (auto) 0.04 K/uL (0-0.2); Basophils % (auto) 0.6 %; Eosinophils # (auto) 0.54 K/uL (0-0.50); Eosinophils % (auto) 8.5 %; Hematocrit (blood only) 30.6 % (37.0-47.0); Hemoglobin 10.5 g/dl (12.0-16.0); Immature Granulocytes # (auto) 0.02 K/uL (0.01-0.20); Immature Granulocytes % (auto) 0.3 %; Lymphocytes # (auto) 2.04 K/uL (1.2-3.4); Lymphocytes % (auto) 32.1 %; Mean Corpuscular Hemoglobin 29.7 pg (25.0-34.0); Mean Corpuscular Hgb Conc 34.3 g/dL (32.0-36.0); Mean Corpuscular Volume 86.4 fL (80.0-100.0); Monocytes # (auto) 0.76 K/uL (0.11-0.59); Neutrophils # (auto) 2.95 K/uL (1.40-6.50); Neutrophils % (auto) 46.5 %; Platelet Count 269 K/uL (130-400); RDW Coefficient of Variation 12.7 % (11.5-14.5); RDW Standard Deviation 40.5 fL (36.4-46.3); Red Blood Count 3.54 M/uL (4.20-5.40); White Blood Count 6.35 K/ul (4.8-10.8)
[2022-08-27 09:22] LABS: BUN Creatinine Ratio 19.6 (10-20); Calcium 8.8 mg/dl (8.6-10.3); Creatinine Clr Calc Pharmacy 45.7 ml/min; Est GFR (African American) 66.7 ml/min; Est GFR (Non-African American) 57.5 ml/min
--- NOTE | 2022-08-27 10:54 | Orthopedic Consultation ---
Date of Consultation August 26, 2022 Assessment & Plan (1) Cellulitis of left foot: Cellulitis improving on IV antibiotic therapy. Recommend conservative care with continued IV Vancomycin with continued improvement anticipated. Infectious disease consult recommended due to presence of indwelling hardware in sofar as preferred antibiotic agent, route and duration of therapy. May WBAT in walking boot. S/P left Foot First Tarsometatarsal Fusion with Lapiplasty plates, Second Paco osteotomy, Second DuVries arthroplasty, Second Extensor tendon lengthening, capsulotomy second metatarsal phalangeal joint on 07/30/22. Continue daily dressing changes after cleansing with solution of half hydrogen peroxide and half sterile saline. Dry well after application of cleansing solution. We will continue to follow with you. Thank you for the opportunity consult in the care of this patient. Milton Hoffman DO [facility] [place] (2) Status post left foot surgery: (3) Failure of outpatient treatment: History of Present Illness Reason for Consultation: Patient presented with approximately 4 to 5 days of worsening left foot pain with redness and swelling and failed outpatient Keflex 500 mg 1 p.o. 4 times daily for 48 hours and was then admitted to the hospitalist service for IV antibiotic therapy. My service was consulted by hospitalist service for orthopedic coverage. Attending Physician: Anni Quintana MD History of Present Illness Left foot pain and swelling for 4 to 5 days without fever or chills. Patient had recent surgery left foot mid July without incident until 4 to 5 days prior to admission. Patient was seen in urgent care and was placed on doxycycline. Dr. Hoffman changed prescription to Keflex 500 mg 1 p.o. 4 times daily and patient failed outpatient therapy. Patient was in a walking boot and was engaging in ice and elevation. Patient was then scheduled for IV therapy. No evidence of N/V/D. No chest pain or shortness of breath. No proximal swelling or calf tightness. Allergies Allergy/AdvReac Type Severity Reaction Status Date / Time Penicillins Allergy Intermediate HIVES Verified 07/30/22 06:23 Sulfa (Sulfonamide Allergy Intermediate HIVES Verified 07/30/22 06:23 Antibiotics) Home Medications Medication Instructions Recorded Confirmed Type carvedilol 6.25 mg tablet 6.25 mg PO BID 01/03/21 08/25/22 History cyclosporine 0.05 % eye drops in a 1 drp ophthalmic (eye) DIRECTED 01/03/21 08/25/22 History dropperette (Restasis) PRN Dry Eyes doxycycline hyclate 50 mg capsule 50 mg PO QAM 01/03/21 08/25/22 History losartan 25 mg tablet 50 mg PO BID 01/03/21 08/25/22 History hxnpyntj-szi-jqcpov 5 mg-zeaxanth 1 cap PO QAM 01/03/21 08/25/22 History 1 mg-bilberry 7.5 mg-herbal capsule ([facility] Formula) rosuvastatin 10 mg tablet 20 mg PO HS 01/03/21 08/25/22 History oxyquinoline 0.025 %-sodium lauryl See Rx Instructions vaginal 07/15/22 08/25/22 Rx sulfate 0.01 % vaginal gel .COMPLEX #113.4 grams (Trimo-Ha Jelly) celecoxib 200 mg capsule (Celebrex) 200 mg PO QAM 07/27/22 08/25/22 History cholecalciferol (vitamin D3) 50 50 mcg PO QAM 07/27/22 08/25/22 History mcg (2,000 unit) capsule (Vitamin D3) timolol maleate 1 dose ophthalmic (eye) BID 07/27/22 08/25/22 History Patient History Medical History Atypical squamous cells of undetermined significance (ASC-US) on cervical Pap smear 02/01/01 Glaucoma Herpes simplex HLD (hyperlipidemia) HTN (hypertension) Non-compaction cardiomyopathy see [facility] cardio records, pt without advised ICD, follows with Tio Sutherland PA-C. PVCs (premature ventricular contractions) Surgical History H/O abdominoplasty H/O colposcopy with cervical biopsy H/O LEEP [facility] 2001 H/O ovarian cystectomy History of colonoscopy History of cryosurgery S/P removal of lung right middle lobectomy for suspicious nodule. unable to biopsy due to location. 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 Previous closure with Monocryl and Dermabond still intact. Dermabond has peeled free. Local erythema improved compared to 48 hours prior. Mild warmth. Intermittent small bullae evident along the medial hindfoot and dorsal midfoot improved over the last 24 hours. Mild weeping and transudate evident. Pedal pulses palpable 2/4 bilateral. Range of motion of the toes limited due to forefoot and midfoot swelling. Sensation diminished slightly due to local turgor. No fluid collections. No obvious abscess. Skin: Warm dry and intact with the exception of the above changes to the left foot Neurologic: PERRL, EOMI, accommodation nl, no face palsy, no dysarthria Psychiatric: A+Ox3, euthymic affect Lymphatic: no cervical or axillary lymphadenopathy Results & Data Vital Signs (Past 12 Hours) Vital Signs Temp Pulse Resp BP Pulse Ox O2 Del Method 08/27/22 07:12 36.5 C 68 16 124/79 99 Room Air Laboratory Results Sed rate and CRP normal. The rest of the laboratories were reviewed. Diagnostic Findings No new imaging.
--- NOTE | 2022-08-27 11:14 | Orthopedic Progress Note ---
Date of Service August 27, 2022 Assessment & Plan (1) Cellulitis of left foot: Plan: Continue with conservative IV antibiotics. Recommend infectious disease consultation due to indwelling hardware. Cellulitis improving on IV antibiotic therapy. Recommend conservative care with continued IV Vancomycin with continued improvement anticipated. Infectious disease consult recommended due to presence of indwelling hardware insofar as preferred antibiotic agent, route and duration of therapy. May WBAT in walking boot. S/P left Foot First Tarsometatarsal Fusion with Lapiplasty plates, Second Paco osteotomy, Second DuVries arthroplasty, Second Extensor tendon lengthening, capsulotomy second metatarsal phalangeal joint on 07/30/22. Continue daily dressing changes after cleansing with solution of half hydrogen peroxide and half sterile saline. Dry well after application of cleansing solution. Will continue to follow with you. (2) Status post left foot surgery: (3) Failure of outpatient treatment: Admission and Anticipated Discharge Date Admission Date: August 25, 2022 Subjective Patient seen and examined at bedside. Appreciate input from wound care and hospitalist team. Patient admits to improvement of swelling and absence of itching of left foot since initiation of IV vancomycin therapy. Denied fevers, chills, nausea, vomiting, diarrhea, shortness of breath, chest pain or night sweats. Physical Exam Constitutional: WD/WN, vitals as above Eyes: PERRL, conjunctivae normal, anicteric sclerae ENMT: external ear and nose normal, oropharynx normal Neck: trachea midline, no thyromegaly Musculoskeletal: Dressing removed left foot noting decrease in transudate and weeping of the left foot. Marked improvement in swelling with decreased swelling and increasing evidence of skin wrinkles consistent with diminished edema. Sensation improved. Pedal pulses palpable. Sensation improving. Range of motion of the lesser toes and great toe improved compared to yesterday examination. Neurologic: PERRL, EOMI, accommodation nl, no face palsy, no dysarthria Psychiatric: A+Ox3, euthymic affect Lymphatic: no cervical or axillary lymphadenopathy Results & Data Vital Signs (Past 12 Hours) Vital Signs Temp Pulse Resp BP Pulse Ox O2 Del Method 08/27/22 07:12 36.5 C 68 16 124/79 99 Room Air Laboratory Results Laboratories reviewed. Positive Enterococcus cultures from outside facility. Normal sed rate and CRP. Diagnostic Findings No new imaging.
--- NOTE | 2022-08-27 17:10 | Hospitalist Progress Note ---
Date of Service August 27, 2022 Assessment & Plan (1) Cellulitis of left foot: (2) Status post left foot surgery: (3) Failure of outpatient treatment: (4) Hyponatremia: (5) Anemia: Plan 72yoF with significant PMHx of paroxysmal ventricular tachycardia, PVC, rosacea, HTN and osteopenia who presents for direct admission secondary to left foot cellulitis after recent orthopedic procedure. Left foot cellulitis Status post left foot surgery on 07/30/2022 Failure of outpatient Patient directly admitted to medical Consulted ortho/Dr. Hoffman Wound culture per outpatient setting growing Enterococcus, sensitive to ampicillin and vancomycin, continue with Vanc. ID consult for PO recs. will defer further imaging to Dr. Hoffman Patient is able to bear weight on left foot with boot in place Consult wound care blood culture and wound culture-NGTD Hyponatremia Stable Anemia Stable HTN Continue losartan Hyperlipidemia Continue statin Rosacea On doxycycline as outpatient, will hold while on IV antibiotic DVT ppx: SQ Lovenox Dispo: med/surg. FULL CODE PCP: Dr. Kerr Admission and Anticipated Discharge Date Admission Date: August 25, 2022 Subjective Pt seen this AM. Stable, noting improvement in L foot lesion. Denies fevers, chills, nught sweats Review of Systems Review of Systems: All systems reviewed & are unremarkable except as noted in Subjective Physical Exam Physical Exam: General: Alert, oriented. No acute distress Skin: maculopapular eruption on LLE stable Psych: Appropriate mood and affect Neuro: No gross deficits HEENT: NC/AT CV: RRR, Normal s1, s2. No murmurs appreciated Resp: Breath sounds clear bilaterally, no increased effort of breathing. No crackles/rhonchi/rales. Abdomen: Soft, nontender, nondistended. No guarding. No organomegaly appreciated. Extremities: LLE with noted swelling, closed wound. Results & Data Results & Data Vital Signs (Past 12 Hours) Vital Signs Temp Pulse Resp BP Pulse Ox O2 Del Method 08/27/22 15:15 36.5 C 71 16 136/77 99 Room Air 08/27/22 07:12 36.5 C 68 16 124/79 99 Room Air
[2022-08-27] MEDS: VANCOMYCIN HCL 1,000 MG in SODIUM CHLORIDE 0.9% 250 ML IV SCH (17:27)
[2022-08-27] MEDS: ROSUVASTATIN CALCIUM 20 MG TAB PO SCH (21:43)
[2022-08-27] MEDS: ENOXAPARIN INJ 40 MG/0.4 ML SYR SQ SCH (21:44)
[2022-08-28 06:46] LABS: Basophils # (auto) 0.03 K/uL (0-0.2); Basophils % (auto) 0.4 %; Eosinophils # (auto) 0.69 K/uL (0-0.50); Eosinophils % (auto) 9.5 %; Hematocrit (blood only) 30.4 % (37.0-47.0); Hemoglobin 10.2 g/dl (12.0-16.0); Immature Granulocytes # (auto) 0.02 K/uL (0.01-0.20); Immature Granulocytes % (auto) 0.3 %; Lymphocytes # (auto) 2.04 K/uL (1.2-3.4); Lymphocytes % (auto) 28.2 %; Mean Corpuscular Hemoglobin 29.1 pg (25.0-34.0); Mean Corpuscular Hgb Conc 33.6 g/dL (32.0-36.0); Mean Corpuscular Volume 86.6 fL (80.0-100.0); Mean Platelet Volume 8.9 fL (9.4-12.4); Monocytes # (auto) 0.74 K/uL (0.11-0.59); Monocytes % (auto) 10.2 %; Neutrophils # (auto) 3.71 K/uL (1.40-6.50); Neutrophils % (auto) 51.4 %; Platelet Count 257 K/uL (130-400); RDW Coefficient of Variation 12.6 % (11.5-14.5); RDW Standard Deviation 39.8 fL (36.4-46.3); Red Blood Count 3.51 M/uL (4.20-5.40); White Blood Count 7.23 K/ul (4.8-10.8)
[2022-08-28 06:58] LABS: Calcium 8.8 mg/dl (8.6-10.3); Creatinine Clr Calc Pharmacy 44.3 ml/min; Est GFR (African American) 64.3 ml/min; Est GFR (Non-African American) 55.5 ml/min; Potassium 4.2 mmol/L (3.5-5.1)
[2022-08-28] MEDS: LOSARTAN POTASSIUM 50 MG TAB PO SCH ×2 (08:31→21:17)
[2022-08-28] MEDS: CHOLECALCIFEROL 1,000 UNITS 25 MCG TAB PO SCH (08:32)
[2022-08-28] MEDS: TIMOLOL MALEATE 0.25% OP SOLN 5 ML BTL OP SCH ×2 (08:32→21:19)
[2022-08-28] MEDS: carvediloL 6.25 MG TAB PO SCH ×2 (08:32→21:18)
--- NOTE | 2022-08-28 11:13 | Orthopedic Progress Note ---
Date of Service August 28, 2022 Assessment & Plan (1) Cellulitis of left foot: Plan: Cleanse left foot daily with solution of half peroxide and half saline. Pat dry and then reapply soft sterile dressing to left foot. Continue with conservative care with continued IV antibiotics. Recommend infectious disease consultation due to indwelling hardware. Cellulitis improving on IV antibiotic therapy. Recommend conservative care with continued IV Vancomycin with continued improvement anticipated. Infectious disease consult recommended due to presence of indwelling hardware insofar as preferred antibiotic agent, route and duration of therapy. May WBAT in walking boot. S/P left Foot First Tarsometatarsal Fusion with Lapiplasty plates, Second Paco osteotomy, Second DuVries arthroplasty, Second Extensor tendon lengthening, capsulotomy second metatarsal phalangeal joint on 07/30/22. Continue daily dressing changes after cleansing with solution of half hydrogen peroxide and half sterile saline. Dry well after application of cleansing solution. Will continue to follow with you. (2) Status post left foot surgery: (3) Failure of outpatient treatment: Admission and Anticipated Discharge Date Admission Date: August 25, 2022 Subjective Seen and examined while patient resting comfortably in bed. Able to ambulate in the room with her walking boot on with some sensation of swelling without significant pain. Continued improvement in L foot pain and swelling Denies fevers, chills, nausea, vomiting, diarrhea, night sweats, shortness of breath or chest pain. Physical Exam Constitutional: WD/WN, vitals as above Eyes: PERRL, conjunctivae normal, anicteric sclerae ENMT: external ear and nose normal, oropharynx normal Neck: trachea midline, no thyromegaly Musculoskeletal: Left foot incisions intact. No evidence of transudate or weeping. Skin is warm, dry and otherwise intact. No evidence of abscess. Improving cellulitis and no streaking at this time. Range of motion of great toe and lesser toes improved compared to admission. Pedal pulses 2/4 palpable. Sensation improving. Calves soft and nontender bilateral. Skin: As noted above. Neurologic: PERRL, EOMI, accommodation nl, no face palsy, no dysarthria Psychiatric: A+Ox3, euthymic affect Lymphatic: no cervical or axillary lymphadenopathy Results & Data Vital Signs (Past 12 Hours) Vital Signs Temp Pulse Resp BP Pulse Ox O2 Del Method 07/15/23 08:29 36.7 C 70 18 114/76 98 Room Air Diagnostic Findings Labs reviewed.
[2022-08-28] MEDS: VANCOMYCIN HCL 1,000 MG in SODIUM CHLORIDE 0.9% 250 ML IV SCH (12:54)
--- NOTE | 2022-08-28 12:58 | XRay Report ---
XR foot LT min 3V routine CLINICAL HISTORY: Assess bone fusion and hardware. Left foot surgery. COMPARISON STUDY: Left foot intraoperative study 07/30/2022. FINDINGS: Cortical plate and screws transfixing the osteotomy at the base of the first metatarsal wit h fusion of the first tarsometatarsal joint. The hardware appears intact. No abnormal periprosthetic lucency. Callus formation adjacent to the hardware consistent with partial healing. There is a single screw through the neck of the second metatarsal which also demonstrates partial healing at this loca tion. Postoperative changes consistent with a prior bunionectomy an partial resection of the head of the second toe proximal phalanx. There is a healing/healed fracture at the left fifth toe proximal ph alanx. The Lisfranc joint is intact. No dislocation. Mild soft tissue swelling at the first MTP joint . IMPRESSION: 1. Postoperative changes as described above with partial healing at the first and second metatarsals. 2. There is also a healing/healed fracture the left fifth toe proximal phalanx. 3. No acute fracture or dislocation within the left foot. ACT 112: Negative or not required by law. Electronically signed by: Rob Milelr M.D. 08/28/2022 12:56 PM
--- NOTE | 2022-08-28 16:57 | Hospitalist Progress Note ---
Date of Service August 28, 2022 Assessment & Plan (1) Cellulitis of left foot: (2) Status post left foot surgery: (3) Failure of outpatient treatment: (4) Hyponatremia: (5) Anemia: Plan 72yoF with significant PMHx of paroxysmal ventricular tachycardia, PVC, rosacea, HTN and osteopenia who presents for direct admission secondary to left foot cellulitis after recent orthopedic procedure. On Vancomycin, awaiting ID recommendations for discharge. Left foot cellulitis Status post left foot surgery on 07/30/2022 Failure of outpatient Patient directly admitted to medical Consulted ortho/Dr. Hoffman Wound culture per outpatient setting growing Enterococcus, sensitive to ampicillin and vancomycin, continue with Vanc. ID consult for PO recs. will defer further imaging to Dr. Hoffman blood culture and wound culture-NGTD Awaiting ID recommendations for discharge Hyponatremia Stable Anemia Stable HTN Continue losartan Hyperlipidemia Continue statin Rosacea On doxycycline as outpatient, will hold while on IV antibiotic DVT ppx: SQ Lovenox Dispo: med/surg. FULL CODE PCP: Dr. Kerr Admission and Anticipated Discharge Date Admission Date: August 25, 2022 Subjective States that she has no complaints. Denies fevers, chills, night sweats. Awaiting ID consult. Review of Systems Review of Systems: All systems reviewed & are unremarkable except as noted in Subjective Physical Exam Physical Exam: General: Alert, oriented. No acute distress Skin: maculopapular eruption on LLE stable Psych: Appropriate mood and affect Neuro: No gross deficits HEENT: NC/AT CV: RRR, Normal s1, s2. No murmurs appreciated Resp: Breath sounds clear bilaterally, no increased effort of breathing. No crackles/rhonchi/rales. Abdomen: Soft, nontender, nondistended. No guarding. No organomegaly appre ciated. Extremities: LLE with noted swelling, closed wound. Results & Data Results & Data Vital Signs (Past 12 Hours) Vital Signs Temp Pulse Resp BP BP Pulse Ox O2 Del Method 08/28/22 15:14 36.6 C 67 16 130/80 100 Room Air 08/28/22 08:29 36.7 C 70 18 114/76 98 Room Air
[2022-08-28] MEDS: ROSUVASTATIN CALCIUM 20 MG TAB PO SCH (21:17)
[2022-08-28] MEDS: ENOXAPARIN INJ 40 MG/0.4 ML SYR SQ SCH (21:19)
[2022-08-29] MEDS ORDERED: VANCOMYCIN LEVEL ONE (04:00)
[2022-08-29 05:59] LABS: Basophils # (auto) 0.05 K/uL (0-0.2); Basophils % (auto) 0.7 %; Eosinophils % (auto) 10.4 %; Hematocrit (blood only) 31.1 % (37.0-47.0); Hemoglobin 10.6 g/dl (12.0-16.0); Immature Granulocytes # (auto) 0.01 K/uL (0.01-0.20); Immature Granulocytes % (auto) 0.1 %; Lymphocytes # (auto) 2.45 K/uL (1.2-3.4); Lymphocytes % (auto) 31.9 %; Mean Corpuscular Hemoglobin 29.7 pg (25.0-34.0); Mean Corpuscular Hgb Conc 34.1 g/dL (32.0-36.0); Mean Corpuscular Volume 87.1 fL (80.0-100.0); Mean Platelet Volume 8.9 fL (9.4-12.4); Monocytes # (auto) 0.82 K/uL (0.11-0.59); Monocytes % (auto) 10.7 %; Neutrophils # (auto) 3.55 K/uL (1.40-6.50); Neutrophils % (auto) 46.2 %; Platelet Count 249 K/uL (130-400); RDW Coefficient of Variation 12.6 % (11.5-14.5); Red Blood Count 3.57 M/uL (4.20-5.40); White Blood Count 7.68 K/ul (4.8-10.8)
[2022-08-29] MEDS: VANCOMYCIN HCL 1,000 MG in SODIUM CHLORIDE 0.9% 250 ML IV SCH ×2 (06:03→22:48)
[2022-08-29 06:17] LABS: BUN Creatinine Ratio 25.3 (10-20); Creatinine Clr Calc Pharmacy 53.4 ml/min; Est GFR (African American) 80.5 ml/min; Est GFR (Non-African American) 69.5 ml/min
[2022-08-29] MEDS: LOSARTAN POTASSIUM 50 MG TAB PO SCH ×2 (08:28→20:51)
[2022-08-29] MEDS: CHOLECALCIFEROL 1,000 UNITS 25 MCG TAB PO SCH (08:28)
[2022-08-29] MEDS: carvediloL 6.25 MG TAB PO SCH ×2 (08:28→20:50)
[2022-08-29] MEDS: TIMOLOL MALEATE 0.25% OP SOLN 5 ML BTL OP SCH ×2 (08:29→20:49)
--- NOTE | 2022-08-29 10:44 | Pharmacy Report ---
Pharmacy PK ABX Note - Date of Service August 29, 2022 - Assessment and Plan Assessment 08/29: Continues on vancomycin monotherapy. BCx NGTD. Foot culture (08/25) low counts mix ventura. Renal function stable. 08/26: 72 year old F receiving Vancomycin for treatment of left foot cellulitis. Pertinent microbiologic data includes: Unsuccessful outpatient treatment with Keflex 500mg QID starting on 08/22 (respective outpt wound culture grew Enterococcus sensitive to vancomycin and ampicillin), inpatient wound culture shows pinpoint growth and blood cultures currently NGTD Day # 2 of IV antimicrobial therapy. Plan Vancomycin * Vancomycin random level 13.5mcg/mL this AM (~16.5hr level). Predicted to achieve an AUCss of 442mg/L.hr with a 72% probability- therapeutic. * Continue vancomycin 1gm IV q18h. * Regimen is predicted to achieve target AUC/JONATHAN of 400-600 mg/L.hr * Will repeat in a level in 48-72h if vancomycin continued. Pharmacy will continue to follow and will adjust dose/frequency as necessary. Thank you. Pharmacy has transitioned to AUC monitoring for vancomycin. AUC/JONATHAN is the preferred PK/PD target and is associated with decreased risk of nephrotoxicity compared to traditional trough targets.
[2022-08-29] MEDS: ROSUVASTATIN CALCIUM 20 MG TAB PO SCH (20:51)
[2022-08-29] MEDS: ENOXAPARIN INJ 40 MG/0.4 ML SYR SQ SCH (20:55)
--- NOTE | 2022-08-29 21:37 | Hospitalist Progress Note ---
Date of Service August 29, 2022 Assessment & Plan (1) Cellulitis of left foot: (2) Status post left foot surgery: (3) Failure of outpatient treatment: (4) Hyponatremia: (5) Anemia: Plan 72yoF with significant PMHx of paroxysmal ventricular tachycardia, PVC, rosacea, HTN and osteopenia who presents for direct admission secondary to left foot cellulitis after recent orthopedic procedure. On Vancomycin, awaiting ID recommendations for discharge. Left foot cellulitis Status post left foot surgery on 07/30/2022 Failure of outpatient Patient directly admitted to medical Consulted ortho/Dr. Hoffman Wound culture per outpatient setting growing Enterococcus, sensitive to ampicillin and vancomycin, continue with Vanc. ID consult for PO recs. will defer further imaging to Dr. Hoffman if needed. blood culture and wound culture-NGTD Awaiting ID recommendations for discharge Hyponatremia Stable Anemia Stable HTN Continue losartan Hyperlipidemia Continue statin Rosacea On doxycycline as outpatient, will hold while on IV antibiotic DVT ppx: SQ Lovenox Dispo: med/surg. FULL CODE PCP: Dr. Kerr Admission and Anticipated Discharge Date Admission Date: August 25, 2022 Subjective States that she has no complaints. Denies fevers, chills, night sweats. Still awaiting ID consult. Review of Systems Review of Systems: All systems reviewed & are unremarkable except as noted in Subjective Physical Exam Physical Exam: General: Alert, oriented. No acute distress Psych: Appropriate mood and affect Neuro: No gross deficits HEENT: NC/AT CV: RRR, Normal s1, s2. No murmurs appreciated Resp: Breath sounds clear bilaterally, no increased effort of breathing. No crackles/rhonchi/rales. Abdomen: Soft, nontender, nondistended. No guarding. No organomegaly appreciated. Extremities: LLE with noted slight swelling, closed wound. Results & Data Results & Data Vital Signs (Past 12 Hours) Vital Signs Temp Pulse Resp BP Pulse Ox O2 Del Method 08/29/22 20:43 36.6 C 65 18 139/77 98 Room Air 08/29/22 14:56 36.4 C L 69 16 123/82 100 Room Air
[2022-08-30 06:12] LABS: Basophils # (auto) 0.06 K/uL (0-0.2); Basophils % (auto) 0.8 %; Eosinophils # (auto) 0.73 K/uL (0-0.50); Eosinophils % (auto) 9.5 %; Hematocrit (blood only) 31.5 % (37.0-47.0); Hemoglobin 10.8 g/dl (12.0-16.0); Immature Granulocytes # (auto) 0.03 K/uL (0.01-0.20); Immature Granulocytes % (auto) 0.4 %; Lymphocytes # (auto) 2.47 K/uL (1.2-3.4); Mean Corpuscular Hemoglobin 29.7 pg (25.0-34.0); Mean Corpuscular Hgb Conc 34.3 g/dL (32.0-36.0); Mean Corpuscular Volume 86.5 fL (80.0-100.0); Mean Platelet Volume 8.7 fL (9.4-12.4); Monocytes # (auto) 0.84 K/uL (0.11-0.59); Monocytes % (auto) 10.9 %; Neutrophils # (auto) 3.58 K/uL (1.40-6.50); Neutrophils % (auto) 46.4 %; Platelet Count 258 K/uL (130-400); RDW Coefficient of Variation 12.5 % (11.5-14.5); RDW Standard Deviation 39.8 fL (36.4-46.3); Red Blood Count 3.64 M/uL (4.20-5.40); White Blood Count 7.71 K/ul (4.8-10.8)
[2022-08-30 06:38] LABS: BUN Creatinine Ratio 24.5 (10-20); Calcium 8.9 mg/dl (8.6-10.3); Creatinine Clr Calc Pharmacy 47.1 ml/min; Est GFR (African American) 69.3 ml/min; Est GFR (Non-African American) 59.8 ml/min; Potassium 4.1 mmol/L (3.5-5.1)
[2022-08-30] MEDS: CHOLECALCIFEROL 1,000 UNITS 25 MCG TAB PO SCH (08:07)
[2022-08-30] MEDS: LOSARTAN POTASSIUM 50 MG TAB PO SCH ×2 (08:07→20:51)
[2022-08-30] MEDS: carvediloL 6.25 MG TAB PO SCH ×2 (08:07→20:51)
[2022-08-30] MEDS: TIMOLOL MALEATE 0.25% OP SOLN 5 ML BTL OP SCH ×2 (08:09→20:50)
--- NOTE | 2022-08-30 10:06 | Orthopedic Progress Note ---
Date of Service August 29, 2022 Assessment & Plan (1) Cellulitis of left foot: Plan: Cellulitis improving on IV antibiotic therapy. Left foot pain improving. Recommend conservative care with continued IV Vancomycin with continued improvement anticipated. Cleanse left foot daily with saline. Pat dry and then reapply soft sterile dressing to left foot. Continue with conservative care with continued IV antibiotics. Recommend infectious disease consultation due to indwelling hardware. Infectious disease consult recommended due to presence of indwelling hardware insofar as preferred antibiotic agent, route and duration of therapy. May WBAT in walking boot. S/P left Foot First Tarsometatarsal Fusion with Lapiplasty plates, Second Paco osteotomy, Second DuVries arthroplasty, Second Extensor tendon lengthening, capsulotomy second metatarsal phalangeal joint on 07/30/22. Continue daily dressing changes after cleansing with solution of half hydrogen peroxide and half sterile saline. Dry well after application of cleansing solution. Will continue to follow with you, anticipate discharge to home with continued antibiotic therapy per recommendation of infectious disease service. Patient to follow-up with established appointment in office next week. Thank you for the opportunity to consult in the care of this patient. Milton Hoffman DO [facility] orthopedic [place]. Office phone . (2) Status post left foot surgery: (3) Failure of outpatient treatment: Admission and Anticipated Discharge Date Admission Date: August 25, 2022 Subjective Patient with no new complaints. Has been up and walking in her room with her walking boot without discomfort. Denies fevers, chills, night sweats. Still awaiting ID consult, hopefully will occur on Tuesday (tomorrow). Physical Exam Constitutional: WD/WN, vitals as above Eyes: PERRL, conjunctivae normal, anicteric sclerae ENMT: external ear and nose normal, oropharynx normal Neck: trachea midline, no thyromegaly Musculoskeletal: Left foot with soft dressing which was removed for examination. Continued improvement in appearance of the left foot with decreased erythema, decreased edema and increased active range of motion of the great toe and lesser toes. Pedal pulses palpable 2/4 bilateral feet. Incisions are clean and dry without transudate or evidence of purulence. No abscess formation at this time. Minimal if any tenderness with palpation at the incision sites and across the forefoot. Light touch sensation improved with palpation. Calves are soft with negative Homans' sign. Neurologic: PERRL, EOMI, accommodation nl, no face palsy, no dysarthria Psychiatric: A+Ox3, euthymic affect Lymphatic: no cervical or axillary lymphadenopathy Results & Data Vital Signs (Past 12 Hours) Vital Signs Temp Pulse Resp BP Pulse Ox O2 Del Method 08/30/22 07:34 36.5 C 67 14 115/65 97 Room Air Diagnostic Findings Radiographs 3 views left foot demonstrate unchanged improved alignment status post previous first tarsometatarsal joint fusion with application of orthopedic plates and screws. Maintained correction of hallux valgus and stable correction of second hammertoe and second metatarsal osteotomy. Minimal soft tissue swelling appreciated. No evidence of fracture.
--- NOTE | 2022-08-30 12:58 | Hospitalist Progress Note ---
Date of Service August 30, 2022 Assessment & Plan (1) Cellulitis of left foot: (2) Status post left foot surgery: (3) Failure of outpatient treatment: (4) Hyponatremia: (5) Anemia: Plan 72yoF with significant PMHx of paroxysmal ventricular tachycardia, PVC, rosacea, HTN and osteopenia who presents for direct admission secondary to left foot cellulitis after recent orthopedic procedure. On Vancomycin, awaiting ID recommendations for discharge. Left foot cellulitis Status post left foot surgery on 07/30/2022 Failure of outpatient Patient directly admitted to medical Consulted ortho/Dr. Hoffman Wound culture per outpatient setting growing Enterococcus, sensitive to ampicillin and vancomycin, continue with Vanc. ID consult for recs which are still pending. I am in favor of finishing the course with PO abx and the patient prefers to avoid a PICC line. It is less likely that the hardware is infected blood culture and wound culture-NGTD Awaiting ID recommendations for discharge Hyponatremia resolved, no further workup. Anemia stable H/H and no bleeding, this is expected in post operative setting. HTN chronic, stable. Continue losartan Hyperlipidemia chronic, stable. Continue statin Rosacea On doxycycline as outpatient, will hold while on IV antibiotic. Restart at discharge. DVT ppx: SQ Lovenox Dispo: med/surg. FULL CODE PCP: Dr. Kerr I did contact Dr. Montelongo as Dr. Hoffman to discuss the case. After seeing the patient I contacted her back later in the evening to discuss what I had found out and update her. I spent a total [id number] coordinating, documenting, and providing care for this patient excluding time spent in the performance of separately billed services DO Dayan Benoit Hospitalist Admission and Anticipated Discharge Date Admission Date: August 25, 2022 Subjective 72-year-old female presented with left foot cellulitis status post left foot tarsometatarsal fusion with Lapiplasty plates, second Paco osteotomy, second reprise arthroplasty, second extensor tendon lengthening, capsulotomy second metatarsal phalangeal joint on 07/30/2022. Swelling redness and drainage at surgical site has cleared up with IV antibiotics over the weekend. Awaiting ID consult which occurred today however they are still uncertainty with respect to continuation of IV versus p.o. antibiotics. Discussed the case with Dr. Hoffman who is comfortable with IV vancomycin for 2 weeks. Per ID, they are waiting for a conversation with Dr. Hoffman to make a solid recommendation. ESR and CRP are normal. The patient is hemodynamically stable and afebrile. She is feeling well. There is no further drainage and she is able to bear weight on her left foot with the boot in place blood and wound cultures have remained negative. The patient is in favor of avoiding a PICC line if possible. Denies pain. Review of Systems Review of Systems: All systems reviewed negative except as indicated above. Physical Exam Physical Exam: CONSTITUTIONAL: WNWD, vitals as above, generally well-appearing, NAD EYES: normal conjunctivae, no scleral icterus, ENT: external ear and nose normal, MMM NECK: trachea midline RESPIRATORY: clear to auscultation bilaterally, no crackles, rales or wheezes, normal respiratory effort CARDIOVASCULAR: regular rate and rhythm, S1 and 2 heard without murmurs, gallops or rubs, no JVD, no peripheral edema, CHEST: inspection of chest was normal GASTROINTESTINAL: soft, nontender, ND, no guarding MUSCULOSKELETAL: strength 5/5 throughout, head is normocephalic and atraumatic, SKIN: warm and dry, well healed incision sites on left foot. All wounds are closed wtih no drainage and there is no pain. Normal movement of the toes and ankle and no superficial erythema present. NEUROLOGIC: CN 2-12 grossly intact, no sensory deficit, normal cognition, normal speech, no tremor PSYCHIATRIC: alert cooperative and oriented to person, place and time. Euthymic mood, makes good eye contact, language grossly intact, recent and remote memory grossly intact. Results & Data Results & Data Vital Signs (Past 12 Hours) Vital Signs Temp Pulse Resp BP Pulse Ox O2 Del Method 08/30/22 07:34 36.5 C 67 14 115/65 97 Room Air Laboratory Results Short CBC 08/30/22 Range/Units 05:51 WBC 7.71 (4.8-10.8) K/ul Hgb 10.8 L (12.0-16.0) g/dl Hct 31.5 L (37.0-47.0) % Plt Count 258 (130-400) K/uL BMP 08/30/22 05:51 Sodium 136 Potassium 4.1 Chloride 106 Carbon Dioxide 24 BUN 23 Creatinine 0.94 Glucose 94 Calcium 8.9 Medications Administered Current Inpatient Medications Acetaminophen (Acetaminophen 325 Mg Tab) 650 mg PO Q4H PRN PRN Reason: pain/fever Stop: 09/24/22 13:37 Al Hydrox/Mg Hydrox/Simethicone (Aluminum/Magnesium Susp 30 Ml Udc) 30 ml PO Q6H PRN PRN Reason: Dyspepsia Stop: 09/24/22 13:37 Artificial Tears (Artificial Tears) 1 drops OP QID PRN PRN Reason: DRY EYES Stop: 09/25/22 08:44 Carvedilol (Carvedilol 6.25 Mg Tab) 6.25 mg PO BID [facility] Stop: 09/24/22 20:59 Last Admin: 08/30/22 08:07 Dose: 6.25 mg Enoxaparin Sodium (Enoxaparin Inj 40 Mg/0.4 Ml Syr) 40 mg SQ HS [facility] Stop: 09/24/22 20:59 Last Admin: 08/29/22 20:55 Dose: Not Given Vancomycin HCl 1,000 mg/ (Sodium Chloride) 270 mls @ 200 mls/hr IV Q18H [facility]; Protocol Stop: 09/02/22 22:59 Last Infusion: 08/30/22 00:21 Dose: Infused Losartan Potassium (Losartan Potassium 50 Mg Tab) 50 mg PO BID [facility] Stop: 09/24/22 20:59 Last Admin: 08/30/22 08:07 Dose: 50 mg Magnesium Hydroxide (Magnesium Hydroxide Susp 30 Ml Udc) 30 ml PO Q6H PRN PRN Reason: Constipation Stop: 09/24/22 13:37 Miscellaneous Information (Vancomycin Consult Active) 1 each N/A UD PRN PRN Reason: Consult Stop: 09/24/22 16:54 Ondansetron HCl (Ondansetron Inj 2 Mg/Ml 2 Ml Vial) 4 mg IV Q6H PRN PRN Reason: Nausea Stop: 09/24/22 13:37 Oxycodone HCl (Oxycodone Hcl Ir 5 Mg Tab (Immediate Release)) 5 mg PO Q6H PRN PRN Reason: severe pain, Stop: 09/08/22 17:08 Polyethylene Glycol (Polyethylene (Miralax) 17 Gm Pack) 17 gm PO DAILY PRN PRN Reason: Constipation Stop: 09/24/22 13:37 Rosuvastatin Calcium (Rosuvastatin Calcium 20 Mg Tab) 20 mg PO HS [facility] Stop: 09/24/22 20:59 Last Admin: 08/29/22 20:51 Dose: 20 mg Timolol Maleate (Timolol Maleate 0.25% Op Soln 5 Ml Btl) 1 drops OP BID [facility] Stop: 09/24/22 20:59 Last Admin: 08/30/22 08:09 Dose: 1 drops Vitamin D (Cholecalciferol 1,000 Units 25 Mcg Tab) 2,000 units PO QA [facility] Stop: 09/25/22 08:59 Last Admin: 08/30/22 08:07 Dose: 2,000 units
[2022-08-30] MEDS: VANCOMYCIN HCL 1,000 MG in SODIUM CHLORIDE 0.9% 250 ML IV SCH (17:07)
[2022-08-30] MEDS: ROSUVASTATIN CALCIUM 20 MG TAB PO SCH (20:51)
[2022-08-30] MEDS: ENOXAPARIN INJ 40 MG/0.4 ML SYR SQ SCH (20:52)
[2022-08-31] MEDS: TIMOLOL MALEATE 0.25% OP SOLN 5 ML BTL OP SCH (08:43)
[2022-08-31] MEDS: LOSARTAN POTASSIUM 50 MG TAB PO SCH (08:43)
[2022-08-31] MEDS: CHOLECALCIFEROL 1,000 UNITS 25 MCG TAB PO SCH (08:43)
[2022-08-31] MEDS: carvediloL 6.25 MG TAB PO SCH (08:43)
--- NOTE | 2022-08-31 08:58 | Pharmacy Report ---
Pharmacy PK ABX Note - Date of Service August 31, 2022 - Assessment and Plan Assessment 08/31 : continues on vancomycin monotherapy. Awaiting ID input for duration. Change to q12 dosing in case IV vancomycin recommended outpatient. 08/29: Continues on vancomycin monotherapy. BCx NGTD. Foot culture (08/25) low counts mix ventura. Renal function stable. 08/26: 72 year old F receiving Vancomycin for treatment of left foot cellulitis. Pertinent microbiologic data includes: Unsuccessful outpatient treatment with Keflex 500mg QID starting on 08/22 (respective outpt wound culture grew Enterococcus sensitive to vancomycin and ampicillin), inpatient wound culture shows pinpoint growth and blood cultures currently NGTD Day # 2 of IV antimicrobial therapy. Plan Vancomycin * Vancomycin random level 14.2mcg/mL this AM (~13hr level). Predicted to achieve an AUCss of 462mg/L.hr with a 86% probability- therapeutic. * Will change to vancomycin 750 mg IV q12 hours in the chance that vancomycin is continued as an outpatient. Predicted AUCss of 515 mg/L.hr with a 97% possibility. * Regimen is predicted to achieve target AUC/JONATHAN of 400-600 mg/L.hr * Will repeat in a level in 48-72h if vancomycin continued. Pharmacy will continue to follow and will adjust dose/frequency as necessary. Thank you. Pharmacy has transitioned to AUC monitoring for vancomycin. AUC/JONATHAN is the preferred PK/PD target and is associated with decreased risk of nephrotoxicity compared to traditional trough targets.
[2022-08-31] MEDS ORDERED: VANCOMYCIN HCL 750 MG in SODIUM CHLORIDE 0.9% 250 ML IV SCH (10:00)
--- NOTE | 2022-08-31 12:45 | Discharge Summary ---
Discharge Summary Date of Service August 31, 2022 Notes For Next Care Provider Patient diagnosed with postoperative wound infection to left foot. Outpatient wound culture grew Enterococcus and she received IV vancomycin while inpatient. She was seen and evaluated by infectious disease who recommended oral antibiotics and felt no indication of hardware infection. Medication Changes From Visit Levaquin 750 mg daily for additional 5 days starting on 09/01/2022. Admission HPI Per Admitting Provider This is a 72-year-old female with significant past medical history of paroxysmal ventricular tachycardia, PVC, rosacea, HTN and osteopenia who presents for direct admission secondary to left foot cellulitis. Of significance patient underwent orthopedic procedure on 07/30/[address] Hoffman with a left foot first tarsometatarsal fusion with Lapiplasty plates, second Paco osteotomy, second Leela arthroplasty, second extensor tendon lengthening, capsulotomy second metatarsal phalangeal joint, modified Ordonez hallux valgus correction and first metatarsal phalangeal joint cheilectomy. Patient was seen in urgent care on 08/22 secondary to redness, warmth, drainage and swelling to the left foot. Symptoms started 5 days prior to ED evaluation. She was started on oral doxycycline and culture was obtained. According to outpatient records cultures positive for Enterococcus sensitive to ampicillin and vancomycin. Dr. Hoffman contacted hospitalist transportation refrigeration technician for direct admission for failed outpt treatment for cellulitis. Per Dr. Hoffman pt was also trialed on keflex without significant improvement. According to patient approximately 5 days ago she noticed increased swelling, redness and drainage from her incision site over the top of her left foot. She tried to contact Dr. Hoffman and after rechecking on Tuesday was told to take dressing off. After being seen in urgent care she was prescribed doxycycline; however, she then received a phone call from Dr. Hoffman and was prescribed Keflex. She never did start the doxycycline and has since been on Keflex without any improvement. She feels overall her foot may be a little bit more swollen and red since starting the Keflex. She was seen in clinic on 08/23 and per patient x-rays were obtained. Due to worsening symptoms she was referred here. She is currently ambulating with boot in place. She denies any fever, chills, sweats, lightheadedness, dizziness, chest pain, shortness breath, nausea, vomiting, abdominal pain. Admission Exam Per Admitting Provider Constitutional: WD/WN, vitals as above, NAD, sitting up in bed, pleasant, conversing easily Head: Normocephalic, Atraumatic Eyes: PERRL, conjunctivae normal, anicteric sclerae ENMT: external ear and nose normal, oropharynx normal Neck: trachea midline, no thyromegaly normal visual inspection Respiratory: normal respiratory effort, lungs clear to auscultation, no wheeze, rales, rhonchi. Normal insp/exp effort, no accessory muscle use Cardiovascular: RRR, no murmur, no edema Vessels: no JVD or carotid bruit Chest: normal inspection of chest Abdomen: normal bowel sounds, soft, nontender, no hepatosplenomegaly Musculoskeletal: no cyanosis or clubbing, extremities motor strength 5/5 Skin: no rashes, warm and dry normal turgor +incision x 4 dorsum of left found with purulent drainage, erythema, warmth, bruising to medial malleolar region with streaking to proximal tibial area Neurologic: PERRL, EOMI, accommodation nl, no face palsy, no dysarthria CN's II-XI intact bilaterally and moves all extremities Psychiatric: A+Ox3, euthymic affect Lymphatic: no cervical or axillary lymphadenopathy : deferred Principal Dx & Hospital Course #1 = Principal Diagnosis (1) Cellulitis of left foot: (2) Status post left foot surgery: (3) Failure of outpatient treatment: (4) Hyponatremia: (5) Anemia: Plan 72yoF with significant PMHx of paroxysmal ventricular tachycardia, PVC, rosacea, HTN and osteopenia who presents for direct admission secondary to left foot cellulitis after recent orthopedic procedure. On Vancomycin, awaiting ID recommendations for discharge. Of significance patient underwent orthopedic procedure on 07/30/[address] Hoffman with a left foot first tarsometatarsal fusion with Lapiplasty plates, second Paco osteotomy, second Leela arthroplasty, second extensor tendon lengthening, capsulotomy second metatarsal phalangeal joint, modified Ordonez hallux valgus correction and first metatarsal phalangeal joint cheilectomy. Patient was seen in urgent care on 08/22 secondary to redness, warmth, drainage and swelling to the left foot. Symptoms started 5 days prior to ED evaluation. She was started on oral doxycycline and culture was obtained. According to outpatient records cultures positive for Enterococcus sensitive to ampicillin and vancomycin. Dr. Hoffman contacted hospitalist transportation refrigeration technician for direct admission for failed outpt treatment for cellulitis. She was started on IV vancomycin with improvement of her cellulitis. She remained nontoxic during hospital stay and did not meet criteria for sepsis. Wound culture inpatient was negative. She was seen and evaluated by infectious disease who recommended standard treatment for cellulitis and discharged on oral antibiotics. On day of discharge I discussed with Dr. Francis of infectious disease as well as patient's surgeon Dr. Hoffman who agree with discharge on Levaquin 750 mg daily for additional 5 days. On day of discharge patient was in good spirits and denied any lower extremity pain. Her wound has significantly improved and there is no further redness. She is hemodynamically stable. Pt was anemic on admission which is felt to be 2/2 recent surgical blood loss. Her anemia panel was negative and hgb trended up to 10.8 during hospital stay. Discharge Exam Gen: WD/WN, NAD, A&O x3 HEENT: Normocephalic, atraumatic, conjunctivae moist, sclerae anicteric, mucous membranes moist. Lung: Clear to Auscultation bilaterally, no wheezes/rales/rhonchi Heart: Regular rate, regular rhythm, no murmurs, rubs, or gallops Abdomen: Soft, NT, ND +BS x 4 Extremities: No edema, left foot dorsal aspect with 4 surgical incisions, no surrounding erythema or drainage and appears much improved Skin: Warm, no rash, negative turgor. Updated Medication List Medication Instructions Recorded Confirmed Type carvedilol 6.25 mg tablet 6.25 mg PO BID 01/03/21 08/25/22 History cyclosporine 0.05 % eye drops in a 1 drp ophthalmic (eye) DIRECTED 01/03/21 08/25/22 History dropperette (Restasis) PRN Dry Eyes doxycycline hyclate 50 mg capsule 50 mg PO QAM 01/03/21 08/25/22 History losartan 25 mg tablet 50 mg PO BID 01/03/21 08/25/22 History lvoutlol-hrk-gzatal 5 mg-zeaxanth 1 cap PO QAM 01/03/21 08/25/22 History 1 mg-bilberry 7.5 mg-herbal capsule (Macular Health Formula) rosuvastatin 10 mg tablet 20 mg PO HS 01/03/21 08/25/22 History oxyquinoline 0.025 %-sodium lauryl See Rx Instructions vaginal 07/15/22 08/25/22 Rx sulfate 0.01 % vaginal gel .COMPLEX #113.4 grams (Trimo-Ha Jelly) celecoxib 200 mg capsule (Celebrex) 200 mg PO QAM 07/27/22 08/25/22 History cholecalciferol (vitamin D3) 50 50 mcg PO QAM 07/27/22 08/25/22 History mcg (2,000 unit) capsule (Vitamin D3) timolol maleate 1 dose ophthalmic (eye) BID 07/27/22 08/25/22 History Hospital Stay Data Consultations 08/25/22 13:38 Consult Orthopedic Surgery Routine 08/27/22 11:13 Consult Infectious Diseases Routine Diagnostic Imagining Performed Foot X-Ray 08/28/22 11:15 XR foot LT min 3V routine CLINICAL HISTORY: Assess bone fusion and hardware. Left foot surgery. COMPARISON STUDY: Left foot intraoperative study 07/30/2022. FINDINGS: Cortical plate and screws transfixing the osteotomy at the base of the first metatarsal with fusion of the first tarsometatarsal joint. The hardware appears intact. No abnormal periprosthetic lucency. Callus formation adjacent to the hardware consistent with partial healing. There is a single screw through the neck of the second metatarsal which also demonstrates partial healing at this location. Postoperative changes consistent with a prior bunionectomy an partial resection of the head of the second toe proximal phalanx. There is a healing/healed fracture at the left fifth toe proximal phalanx. The Lisfranc joint is intact. No dislocation. Mild soft tissue swelling at the first MTP joint. IMPRESSION: 1. Postoperative changes as described above with partial healing at the first and second metatarsals. 2. There is also a healing/healed fracture the left fifth toe proximal phalanx. 3. No acute fracture or dislocation within the left foot. ACT 112: Negative or not required by law. Electronically signed by: Rob Miller M.D. 08/28/2022 12:56 PM Pending Results Patient Have Any Pending Studies at Discharge: No Discharge Instructions Given to Patient (Per Discharging Provider) MEDICATION CHANGES: Levaquin 750 mg daily for additional 5 days. Next dose 09/01/2022. Recommend taking daily probiotic while on antibiotic therapy. You state that you have a supply at home. SUMMARY OF TEST RESULTS: You were admitted to hospital secondary to infection to the surgical site of your left foot. Wound culture grew Enterococcus in the outpatient setting. You were started on IV vancomycin and symptoms improved. PENDING TEST RESULTS: None RECOMMENDATIONS FOR FOLLOW-UP: Complete antibiotic in its entirety. You have a follow-up with Dr. Hoffman next week, please keep this appointment. Please continue to follow all Dr. Hoffman's recommendations regarding wound and weightbearing status to the left foot. Recommend taking daily probiotic while on antibiotic therapy. Continue all other medications. OTHER INSTRUCTIONS: Seek medical attention if you have: * temperature above 101 * chest pain or trouble breathing * abdominal pain, nausea, vomiting * diarrhea, dark stools or bloody stools * any unanswered questions or concerns Call 911 if symptoms are severe. Please take good care of yourself. It has been a pleasure taking care of you. Please take care of yourself. If you have any questions regarding your recent hospitalization please contact [facility] and request [facility] @ [phone]. Leeanne Baldwin PA-C Total Time Total Time Spent Total Time Spent (In Minutes): 45 minutes Supervising Physician Co-Signing Physician Notes I have seen and examined the patient and have discussed the case with the provider above. I agree with the assessment and plan as stated. Danny,
--- NOTE | 2022-09-02 05:26 | Coding Query ---
POSTOPERATIVE WOUND To promote full compliance with coding requirements relating to patient care, physician participation is requested in all cases of professional healthcare representative uncertainty. Please assist us with the question(s) below: Please place an "X" within the parenthesis (x). If other, please specify: Patient admitted on 08/25 with foot cellulitis. Prior foot surgery on 07/30 (fusion,lapiplasty). No surgical intervention for this current admission. "Postoperative" status is documented on the Interval Summary. 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
== END 2022-08-31 15:00 | disposition home or self-care (01) | DRG 863 ==
LOC: 3E 14:24 → SUATTDRO 14:24

== ENCOUNTER 2023-11-29 06:33 | Observation (INO) ==
--- NOTE | 2023-09-30 16:01 | PAT Medication Instructions ---
Medication Instructions Date of Service September 30, 2023 Home Medications carvedilol 6.25 mg tablet 6.25 mg PO BID cyclosporine 0.05 % eye drops in a dropperette (Restasis) 1 drp ophthalmic (eye) DIRECTED PRN Dry Eyes doxycycline hyclate 50 mg capsule 50 mg PO 3XWK rosecea vnuwfurz-upq-nbulux 5 mg-zeaxanth 1 mg-bilberry 7.5 mg-herbal capsule (Macular Health Formula) 1 cap PO QAM cholecalciferol (vitamin D3) 50 mcg (2,000 unit) capsule (Vitamin D3) 50 mcg PO QAM rosuvastatin 20 mg tablet 20 mg PO HS alendronate 70 mg tablet 70 mg PO WK biotin 1 mg capsule 1 mg PO QAM losartan 50 mg tablet 50 mg PO BID Continue as directed doxycycline hyclate 50 mg capsule 50 mg PO 3XWK rosecea alendronate 70 mg tablet 70 mg PO WK STOP taking 2 weeks before surgery (or as soon as possible if surgery is within 2 weeks) agnqgxun-bnz-yfhult 5 mg-zeaxanth 1 mg-bilberry 7.5 mg-herbal capsule (Macular Health Formula) 1 cap PO QAM DO NOT take the morning of surgery cholecalciferol (vitamin D3) 50 mcg (2,000 unit) capsule (Vitamin D3) 50 mcg PO QAM biotin 1 mg capsule 1 mg PO QAM losartan 50 mg tablet 50 mg PO BID Take morning of surgery With a small sip of water, OTHERWISE NOTHING TO EAT OR DRINK AFTER MIDNIGHT: carvedilol 6.25 mg tablet 6.25 mg PO BID cyclosporine 0.05 % eye drops in a dropperette (Restasis) 1 drp ophthalmic (eye) DIRECTED PRN Dry Eyes (if needed) Take evening before surgery carvedilol 6.25 mg tablet 6.25 mg PO BID cyclosporine 0.05 % eye drops in a dropperette (Restasis) 1 drp ophthalmic (eye) DIRECTED PRN Dry Eyes (if needed) rosuvastatin 20 mg tablet 20 mg PO HS losartan 50 mg tablet 50 mg PO BID Other Notes If you have any questions please call us at [phone] or [phone] or [phone] or [phone]
--- NOTE | 2023-10-11 11:41 | Anesthesiology Consultation ---
Date of Service October 11, 2023 Assessment & Plan (1) Encounter for pre-operative examination: - awaiting [facility] cardiology ordered echocardiogram and stress test. 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 EF of 39% per MRI. EF mildly improved, 45-49% via January 2022 resting echocardiography. Volume status: compensated. Functional class: NYHA class 1. Frequent asymptomatic PVCs, quiescent. Nonspecific interventricular conduction delay, intermittent RBBB. Avulsed mitral valve chordae without significant mitral regurgitation...refer for resting echocardiography...Lexiscan nuclear stress testing...ambulatory electrocardiography previously recommended to assess ectopy burden and screen for atrial fibrillation, declined due to prior significant skin reaction/irritation...Anticoagulation previous recommended and declined. ICD implantation previously recommended and declined..." - semaglutide instructions: Patient informed at PAT visit to stop 7 days prior to surgery-voiced understanding. - Outpatient joint assessment: Patient is currently scheduled for inpatient pathway. If re-evaluated and patient/surgeon requests outpatient pathway, patient is not candidate for outpatient joint program from anesthesia standpoint. Chart Review Chart Review: Pending: Refer to Additional Notes / Consult section and Patient seen in Pre Admission Testing Teaching & Discussion Pre-Anesthesia Teaching/Discussion Notes: Instructed NPO after midnight before surgery, except medications with 15 cc of water. Medication instructions provided according to the PAT guidelines. History Surgery Operation Date: 11/09/23 12:45 Proposed Procedures p Right Total Knee Arthroplasty - Oliver Hill MD Height/Weight Height: 5 ft 3 in Weight: 61 kg Allergies Allergy/AdvReac Type Severity Reaction Status Date / Time Penicillins Allergy Intermediate HIVES Verified 09/30/23 10:49 Sulfa (Sulfonamide Allergy Intermediate HIVES Verified 09/30/23 10:49 Antibiotics) latex Allergy Mild red, itchy Verified 09/30/23 10:49 rash nickel Allergy Mild red, itchy Verified 09/30/23 10:49 rash Medications Home Medications Medication Instructions Recorded Confirmed Last Taken carvedilol 6.25 mg tablet 6.25 mg PO BID 01/03/21 09/30/23 11/29/22 10:30 cyclosporine 0.05 % eye drops in a 1 drp ophthalmic (eye) DIRECTED 01/03/21 09/30/23 07/29/22 08:00 dropperette (Restasis) PRN Dry Eyes doxycycline hyclate 50 mg capsule 50 mg PO 3XWK rosecea 01/03/21 09/30/23 11/28/22 ypqigwxi-rbx-mhjocf 5 mg-zeaxanth 1 cap PO QAM 01/03/21 09/30/23 11/28/22 1 mg-bilberry 7.5 mg-herbal capsule (Macular Health Formula) cholecalciferol (vitamin D3) 50 50 mcg PO QAM 07/27/22 09/30/23 11/28/22 mcg (2,000 unit) capsule (Vitamin D3) rosuvastatin 20 mg tablet 20 mg PO HS 11/09/22 09/30/23 11/28/22 alendronate 70 mg tablet 70 mg PO WK 09/30/23 09/30/23 Unknown biotin 1 mg capsule 1 mg PO QAM 09/30/23 09/30/23 Unknown losartan 50 mg tablet 50 mg PO BID 09/30/23 09/30/23 Unknown semaglutide (weight loss) 0.25 0.25 mg subcut Q7D 10/11/23 10/11/23 Unknown mg/0.5 mL subcutaneous pen injector Additional Notes: Patient was instructed semaglutide must be stopped 7 days before surgery and this was written on provided medication instructions. She verbalized understanding and agreement, denied questions, concerns or additional medications. 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 Osteopenia "mild" PVCs (premature ventricular contractions) Rosacea Patient denies h/o stroke, seizures, heart attack, DM, blood clots/DVTs or blood transfusions. Exercise / Class Metabolic Activity II 4-5 Yardwork/Stairs/Walk up hill (denies chest discomfort or shortness of breath with one flight of stairs) Past Family History Family History Father Stroke syndrome Mother Thrombophlebitis Daughter Pernicious anemia Other No family history of adverse response to anesthesia Denies family history of Ovarian cancer Breast cancer Colorectal cancer Uterine cancer Past Surgical History Surgical History H/O abdominoplasty H/O colposcopy with cervical biopsy H/O LEEP [facility] 2001 H/O ovarian cystectomy History of colonoscopy History of cryosurgery Hx of foot surgery left foot hammertoe correction and bunionectomy at [facility] Hx of left cataract extraction Hx of right cataract extraction S/P bunionectomy c/b infection and hospital admission S/P removal of lung right middle lobectomy for suspicious nodule. unable to biopsy due to location. benign Past Anesthesia History No Hx of Anesthesia Complications and No Family Hx of Anesthesia Complications History of PONV No Hx of Motion Sickness and History of PONV Social History Smoking Status: Never smoker Do You Dip or Chew Tobacco: No Hx Alcohol Use: Yes Alcohol type: wine alcohol intake frequency: a few times a month Hx Substance Use: No substance use type: does not use Review of Systems Patient denies chest pain, shortness of breath, dyspnea on exertion, snoring, witnessed apneas, fever, chills, cough, wheezing, or palpitations. Physical Exam Vital Signs Vitals BP 133/79 P 72 TEMP 97.7 SP02 98% on RA RESP 17 Physical Patient resting comfortably in chair in no acute distress, alert and oriented, responding appropriately throughout visit Full cervical extension range of motion without pain TMD 3.5 finger breadths Mallampati Score 2 Dentition: several crowns; denies chipped or loose teeth, caps, implants or bridges Lungs: normal respiratory effort. Good air movement, clear throughout to auscultation, no adventitious breath sounds Cardiac: regular rate and rhythm, no murmurs noted Carotid arteries: negative bruit bilat Lab Results Anesthesia Preop Results Results Anesthesia Widget: WBC 6.39 K/ul (4.8-10.8) 10/11/23 Hgb 11.0 g/dl (12.0-16.0) L 10/11/23 Hct 33.4 % (37.0-47.0) L 10/11/23 Plt 334 K/uL (130-400) 10/11/23 Na 131 mmol/L (136-145) L 10/11/23 K 4.7 mmol/L (3.5-5.1) 10/11/23 Cl 100 mmol/L (98-107) 10/11/23 CO2 25 mmol/L (21-32) 10/11/23 BUN 15 mg/dl (6-23) 10/11/23 Creat 0.92 mg/dl (0.6-1.2) 10/11/23 Glucose Level 80 mg/dl (70-99(Fasting)) 10/11/23 PT 10.8 Seconds (9.0-12.0) 10/11/23 PTT 28 Seconds (21-31) 10/11/23 INR 1.0 (0.9-1.1) 10/11/23 Blood Type A Positive 10/11/23 Antibody Screen NEGATIVE 10/11/23 Testing Electrocardiogram Date: 09/01/23 NSR, rate 68 bpm Nonspecific intraventricular conduction delay Chest X-Ray Date: 10/11/23 No acute process.
--- NOTE | 2023-11-25 17:26 | History & Physical Report ---
Date of Service November 25, 2023 Assessment & Plan (1) Right knee DJD: 73-year-old female with advanced right knee DJD. That this has been progressed over the past 10 years. She failed conservative measures. She is ready to have her right knee replaced. She does have some issues with nickel so we will plan on using the [employer] zirconium knee arthroplasty system. Plan: We are going to take her to the operating do right total knee replacement. The risks and benefits of this procedure explained. Due to this apparent nickel allergy issue we can use a [employer] knee. She has been seen by [facility] cardiology and cleared for surgery. She will likely be discharged to home using home health. Will use aspirin for DVT prophylaxis. (2) Anemia: (3) Congenital heart anomaly: History of Present Illness Chief Complaint: . Persistent right knee pain and discomfort. Primary Care Provider: Francesca Cotton PA-C . The patient is a 73-year-old female who presents for surgical treatment of her right knee. She has a 10-year history of increasing right knee pain and discomfort described to gotten worse over time. She has been through extensive conservative treatment In various locations including medial OCD here as well as in [place]. She spends quite a bit of her time in [place]. She had multiple injections which have become less successful over time. She describes global pain. The more she is up her arm the more it hurts. She like to have it fixed. She was actually scheduled for surgery in [place] but decided to do it here. We had her scheduled a little bit ago but she had to reschedule due to COVID. She is now recovered from this. She has been seen by cardiology and cleared. Allergies Allergy/AdvReac Type Severity Reaction Status Date / Time Penicillins Allergy Intermediate HIVES Verified 11/22/23 10:38 Sulfa (Sulfonamide Allergy Intermediate HIVES Verified 11/22/23 10:38 Antibiotics) latex Allergy Mild red, itchy Verified 11/22/23 10:38 rash nickel Allergy Mild red, itchy Verified 11/22/23 10:38 rash Home Medications Medication Instructions Recorded Confirmed Type carvedilol 6.25 mg tablet 6.25 mg PO BID 01/03/21 11/22/23 History cyclosporine 0.05 % eye drops in a 1 drp ophthalmic (eye) BID Dry Eyes 01/03/21 11/22/23 History dropperette (Restasis) doxycycline hyclate 50 mg capsule 50 mg PO 3XWK rosecea 01/03/21 11/22/23 History iqjrjsjd-onp-rldxan 5 mg-zeaxanth 1 cap PO QAM 01/03/21 11/22/23 History 1 mg-bilberry 7.5 mg-herbal capsule (Macular Health Formula) cholecalciferol (vitamin D3) 50 50 mcg PO QAM 07/27/22 11/22/23 History mcg (2,000 unit) capsule (Vitamin D3) rosuvastatin 20 mg tablet 20 mg PO HS 11/09/22 11/22/23 History alendronate 70 mg tablet 70 mg PO Q7D 09/30/23 11/22/23 History biotin 1 mg capsule 1 mg PO QAM 09/30/23 11/22/23 History losartan 50 mg tablet 50 mg PO BID 09/30/23 11/22/23 History semaglutide (weight loss) 0.25 0.25 mg subcut Q7D 10/11/23 11/22/23 History mg/0.5 mL subcutaneous pen injector Estrogen/Progesterone Cream 1 applic topical HS 11/22/23 11/22/23 History Past Med/Surg History Problem List Right knee DJD Failure of outpatient treatment Anemia Hyponatremia 08/25/22 Status post left foot surgery Cellulitis of left foot 08/25/22 Metatarsalgia, left foot Exostosis of left foot Contracture, left foot 07/29/22 Hammertoe of second toe of left foot Hallux valgus (acquired), left foot Osteoarthritis of midtarsal joint of left foot Encounter for pre-operative examination Postmenopausal hormone replacement therapy compounded creams. Congenital heart anomaly noncompacting cardiomyopathy. Cystocele, midline (Acute) Medical History History of COVID-19 10/31/23, following flight/trip home from [place]>symptoms resolved History of anemia no recent issues Difficult intravenous access Hiatal hernia Osteopenia "mild" Rosacea History of anesthesia reaction post op nausea PVCs (premature ventricular contractions) Non-compaction cardiomyopathy see [facility] cardio records, pt without advised ICD, follows with Tio Sutherland PA-C. Glaucoma HTN (hypertension) controlled, stable per pt HLD (hyperlipidemia) Atypical squamous cells of undetermined significance (ASC-US) on cervical Pap smear (02/01/01) Surgical History Hx of foot surgery left foot hammertoe correction and bunionectomy at [facility] Hx of right cataract extraction S/P bunionectomy c/b infection and hospital admission Hx of left cataract extraction History of colonoscopy H/O abdominoplasty S/P removal of lung right middle lobectomy for suspicious nodule. unable to biopsy due to location. benign History of cryosurgery H/O colposcopy with cervical biopsy H/O ovarian cystectomy H/O LEEP [facility] 2001 Family History Father Stroke syndrome Mother Thrombophlebitis Daughter Pernicious anemia Other No family history of adverse response to anesthesia Denies family history of Ovarian cancer Breast cancer Colorectal cancer Uterine cancer Social History Smoking Status: Never smoker Second Hand Exposure: No; Do You Dip or Chew Tobacco: No; Tobacco Cessation Education Requested by Patient: No Hx Alcohol Use: Yes Alcohol type: wine Hx Substance Use: No Preferred Language: Yoruba Communication Ability: Effective Damper Fitter Required: No Beliefs That Will Affect Care: None Current Living Situation: Spouse Other Information That Helps Us Care for You: No Feels Safe at Home: Yes Safety Concerns: Feels Safe At This Time Assistive Devices: None Review of Systems All systems reviewed & are unremarkable except as noted in HPI & below. Physical Exam . Physical examination was a pleasant middle-aged female. She ambulates independently. Examination of the right knee reveals slight varus alignment to her knee. Is got bony approach to the medial knee. Range of motion about 5-1 20. No instability. No particular pain with hip motion. She is neurologically intact. Constitutional WD/WN, vitals as above Neck trachea midline, no thyromegaly Respiratory normal respiratory effort, lungs clear to auscultation Cardiovascular RRR, no murmur, no edema Gastrointestinal (Abdomen) normal bowel sounds, soft, nontender, no hepatosplenomegaly Results & Data Results & Data Laboratory Results . Diagnostic Findings . X-rays of the right knee reviewed. Shows advanced right knee medial and patellofemoral compartment arthritis. She got complete loss of medial joint space. She got significant patellofemoral disease. PG Care Time/CCT Total # of Minutes Spent Total Time Spent with Patient: Total time spent is greater than 50% in coordination of care (as documented) at patient's floor/unit and/or counseling patient: Coding Level of Care Code None Diagnoses Right knee DJD M17.11 Anemia D64.9 Congenital heart anomaly Q24.9
[~2023-11-29 06:33] MED LIST changes: -ASPCH81X PO; +BUPIVACAINE 0.25% PF 30 ML VIAL ONE; +BUPIVACAINE 0.5 % 5 MG/1 ML PF 10ML VIAL ONE; -CLB/200 PO; -CYCL0.052 OPB; -DOXY50CA26 PO; -ESOM20CA PO; -LATA0.5S OPB; -LIDOCAINE HCL 2% 2 ML VIAL (20MG/ML) ONE; -METO50TA7 PO; -METR0.754 TOP; -MULT1CAP53 PO; -ONDANSETRON INJ 2 MG/ML 2 ML VIAL IV PRN; -PROPOFOL IV EMULSION 10 MG/ML 20 ML VIAL IV ONE
[2023-11-29] MEDS: LR 500ML BOLUS, THEN 15ML/HR IV SCH (07:10)
[2023-11-29] MEDS: CeleBREX 200 MG CAP PO SCH (07:12)
[2023-11-29] MEDS: ACETAMINOPHEN 500 MG TAB PO SCH ×2 (07:12→13:47)
[2023-11-29] MEDS: LR 60ML/HR IV SCH (07:12)
[2023-11-29] MEDS: FAMOTIDINE 20 MG TAB PO SCH (07:12)
[2023-11-29] MEDS: METOCLOPRAMIDE HCL 10 MG TABLET PO SCH (07:12)
--- OUTSIDE RECORDS SUMMARY | 2023-11-29 07:15 | External Medical Summary | Summary of Care ---
Author Name Unknown Organization [facility] Address [address] [place] [address] Phone [phone] Care Team Providers Care Lidar Technician Name Role Phone Francesca Cotton PA-C Primary Care Provider [phone] Reason for Visit * Reason Onset Date Comments Test Results 10/14/2023 Encounter Details Date Type Department Care Team (Late st Contact Info) Description 10/14/2023 Telephone Cardiology, [facility] [address] [facility] [place] [id number] Tio Sutherland PA-C [address] [place] [address] Test Results Allergies Active Allergy Reactions Criticality Noted Date Comments Amoxicillin Hives 05/02/1999 rash Penicillins Hives 04/17/2013 Sulfa Antibiotics Hives 05/02/1999 Hives documented as of this encounter (statuses as of 10/14/2023) Medications Medication Sig Dispensed Refills Start Date End Date Status RESTASIS 0.05 % OP EMUL one drop in am and evening Active Cholecalciferol 5000 UNITS Capsule Take 1 Capsule by mouth in the morning. Active Biotin 5 MG Oral Tablet Take 1 Tablet by mouth in the morning. Active Rosuvastatin Calcium 20 MG Oral Tablet (Crestor)Indication s:Dyslipidemia, goal LDL below 100 TAKE 1 TABLET BY MOUTH EVERY DAY 90 Tablet 3 03/10/2023 Active Doxycycline Hyclate 50 MG Oral Capsule (Vibramycin) Take 1 Capsule by mouth in the morning. 30 Capsule 3 03/22/2023 Active Additional Information Patient taking differently:50 mg OralEVERY OTHER DAY, Reported on 09/01/2023 Estriol-Progesteron e Micro 4-20 MG/GM Transdermal Cream APPLY ONE ML TOPICALLY 07/21 NIGHTS 30 g 6 03/28/2023 Active Losartan Potassium 50 MG Oral Tablet (Cozaar)Indications :HTN, goal below 130/80 Take 1 Tablet by mouth in the morning and 1 Tablet before bedtime. 180 Tablet 3 08/16/2023 Active Carvedilol 6.25 MG Oral Tablet (Coreg)Indications: Frequent PVCs Take 1 Tablet by mouth in the morning and 1 Tablet before bedtime. 180 Tablet 3 08/29/2023 Active Ondansetron HCl 8 MG Oral Tablet (Zofran)Indications :Nausea 1 TABLET 3 TIMES DAILY as needed for nausea 10 Tablet 1 09/29/2023 Active Alendronate Sodium 70 MG Oral Tablet (Fosamax)Indication s:Age-related osteoporosis without current pathological fracture TAKE 1 TABLET BY MOUTH ONCE WEEKLY WITH 8 OZ OF WATER 30 MINUTES BEFORE FIRST MEAL OF THE DAY. REMAIN UPRIGHT FOR 30 MIN AFTER TAKING TABLET. 4 Tablet 11 10/05/2023 Active documented as of this encounter (statuses as of 10/14/2023) Active Problems Problem Noted Date Diagnosed Date Hematoma 01/11/2021 Pain of left lower leg 01/11/2021 Seasonal allergic rhinitis 07/04/2018 Dysfunction of right eustachian tube 07/04/2018 Paroxysmal ventricular tachycardia 09/01/2017 Left ventricular noncompaction 03/01/2017 PVCs (premature ventricular contractions) 2017 Rosacea 06/24/2014 ADVANCE DIRECTIVE INFORMATION 07/16/2004 Overview: No, Advance Directive brochure offered , patient declined. 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 GERD (gastroesophageal reflux disease) 08/23/2019 documented as of this encounter (statuses as of 10/14/2023) Immunizations Name Administration Dates Next Due COVID-19 mRNA, LNP-s, No Pre serve, 2-Dose Series (Moderna) 04/18/2020,03/21/2020 COVID-19, MRNA-LNP, 23-24, P F, 30 MCG/0.3 mL, 12 YRS AND ABOVE, IM (PFIZER-Comirnaty) 05/06/2023 COVID-19, MRNA-LNP, 23-24, P F, 50 MCG/0.5 mL, 12 YRS AND ABOVE, IM (MODERNA-Spikevax) 11/25/2022 COVID-19, mRNA, LNP-s, PF, B ooster, 100mcg/0.5mg (Moderna) 12/08/2020 Diptheria/Tetanus Adult (TD) 07/14/1999 PPD 02/18/2010 Pneumococcal Conjugate Vacc, 13 Valent (Prevnar) 03/20/2017 Pneumococcal Polysaccharide PPV23 (Pneumovax) 09/20/2013 RSV Vac., Recomb, Adjuvant, PF,0.5 Ml (Arexvy) 05/06/2023 Season Influenza, Quad, PF, Adjuvanted, 65+ Yrs, IM (FLUAD) 11/09/2021,11/08/2020 Seasonal Influenza, PF, 6 M & above, IM , (FluLaval or Fluzone) 11/08/2019,10/19/2018,10/31/2017,11/18 Seasonal Influenza, Quadriva lent Hd (Fluzone Hd) 11/18/2022 Seasonal Influenza, Trivalen t, (IIV3), PF, (Fluzone) 12/29/2015 Seasonal Influenza, Trivalen t, (IIV3), with Preserv, (Fluzone) 10/29/2014,01/07/2014,10/31/2012,02/16,12/01/2010,12/18/2009,12/13/2008 ,01/02/2008,12/21/2006,12/15/2005,11/15,12/26/2002 TD, Preservative Free 07/14/1999 TDAP, Age 7 and older, IM (Adacel) 12/13/2008 Varicella Zoster Vaccine (Adult) 07/14/2011 Zoster Vaccine Recombinant (Shingrix) 08/17/2023 ,05/06/2023 documented as of this encounter Social History Tobacco Use Types Packs/Day Years Used Date Smoking Tobacco: Never Smokeless Tobacco: Never Alcohol Use Standard Drinks/Week Comments Yes 5.8 (1 standard drink = 0.6 oz p ure alcohol) 2-3 glasses of wine a week AUDIT-C Answer Date Recorded Frequency of Alcohol Consumption 4 or more times a week 08/23/2019 Average Number of Drinks Not on file 020 Frequency of Binge Drinking Not on file 10/2019 PHQ-2 Answer Date Recorded PHQ Adult Total Score 0 11/18/2022 Hunger Vital Sign Answer Date Recorded Worried About Running Out of Food in the Last Ye ar Not on file 09/13/2022 Within the past 12 months, t he food you bought just didn't last and you didn't have money to get more. Never true 09/13/2022 Childcare Answer Date Recorded Do you feel overwhelmed with taking care of a child, family member or friend? No 09/13/2022 Does your family need help f inding childcare? (Household - for ages 0-17 years) Not on file 09/13/2022 Clothing Answer Date Recorded Have you been unable to get clothing when it was really needed? No 09/13/2022 Is your family able to get c lothes or diapers when needed? (Household - for ages 0-17 years) Not on file 09/13/2022 Personal Safety Answer Date Recorded Do you feel unsafe or have concerns for your saf ety? No 09/13/2022 Do you have concerns for you r family's safety? (Household - for ages 0-17 years) Not on file 09/13/2022 Utilities Answer Date Recorded Do you have trouble paying y our heating, water, or electric bill? (Adult - for ages 18 years and over) Not on file 09/14/2023 Is your family able to pay t he heat, water, or electric bill? (Household - for ages 0-17 years) Not on file 09/14/2023 Does your family have access to good internet? (Household - for ages 0-17 years) Not on file 09/14/2023 Employment Status Answer Date Recorded Are you unemployed or without regular income? No 09/13/2022 Does the household have a re gular source of income? (Household - for ages 0-17 years) Not on file 09/13/2022 Social Connections Answer Date Recorded How often do you feel lonely or isolated from those around you? (Adult - for ages 18 years and over) Not on file 09/14/2023 Financial Resource Strain Answer Date R ecorded Do you have any trouble payi ng for your medications, or do you think you might in the future? No 09/13/2022 Does your family have troubl e paying for medicine? (Household - for ages 0-17 years) Not on file 09/13/2022 Transportation Needs Answer Date Record ed READ ONLY Do you have troubl e getting a ride to medical visits or work? Never True 09/13/2022 Does your family have a hard time getting a ride to doctors visits? (Household - for ages 0-17 years) Not on file 09/13/2022 Has lack of transportation k ept you from medical appointments, meetings, work, or from getting things needed for daily living? Check all that apply. (Adult - for ages 18 years and over) Not on file 09/13/2022 Do you (or your family) have trouble finding or paying for a ride (transportation)? (Household - for ages 0-17 years) Not on file 09/13/2022 Housing Stability Answer Date Recorded Do you currently live in a s helter or have no steady place to sleep at night? No 09/13/2022 READ ONLY Do you think you a re at risk of becoming homeless? No 09/13/2022 Does your family worry about paying for your home or becoming homeless? (Household - for ages 0-17 years) Not on file 0 09/13/2022 Are you homeless or worried that you might be in the future? (Adult - for ages 18 years and over) Not on file Are you (or your family) baltazar eless or worried that you might be in the future? (Household - for ages 0-17 years) Not on file Food Insecurity Answer Date Recorded Do you need food for this week? No 09/13/2022 Are you able to get enough f ood for your family? (Household - for ages 0-17 years) Not on file 09/13/2022 Does your family need food t his week? (Household - for ages 0-17 years) Not on file 09/13/2022 Do you always have enough fo od for your family? (Household - for ages 0-17 years) Not on file 09/13/2022 Sex and Gender Information Value Date Recorded Sex Assigned at Female 08/06/2022 12:21 PM EDT Gender Identity Female 08/06/2022 12:21 PM EDT Sexual Orientation Choose not to disclose 2022 12:21 PM EDT Job Start Date Occupation Industry Not on file Not on file Not on file documented as of this encounter Functional Status Functional Status Response Date of Assess ment Are you deaf or do you have serious difficulty h earing? No 03/18/2017 Are you blind or do you have serious difficulty seeing, even when wearing glasses? No 03/18/2017 Do you have serious difficul ty walking or climbing stairs? (5 years old or older) No 03/18/2017 Do you have difficulty dress ing or bathing? (5 years old or older) No 03/18/2017 Because of a physical, menta l, or emotional condition, do you have difficulty doing errands alone such as visiting a doctor s office or shopping? (15 years old or older) No 03/18/19 18 Cognitive Status Response Date of Assessm ent Because of a physical, menta l, or emotional condition, do you have serious difficulty concentrating, remembering, or making decisions? (5 years old or older) No 03/18/2017 documented as of this encounter Miscellaneous Notes * Telephone Encounter - Tio Sutherland PA-C - 10/14/2023 3:35 PM EDT Abnormality observed reflects/correlates with history, left ventricular noncompaction No evidence to suggest significant blockage that would require further evaluation/intervention via cardiac catheterization Tio Sutherland PA-C Department of Cardiology * Telephone Encounter - Jake Pool LPN - 10/14/2023 3:18 PM EDT Please see Cloud[employer] reply. Sent patient report. * Telephone Encounter - Jake Pool LPN - 10/14/2023 2:41 PM EDT Sent patient a [employer] message to make aware. ----- Message from Tio Sutherland sent at 10/14/2023 2:20 PM EDT ----- October 12, 2023 Lexiscan Interpretation Summary (as per Dr. Negron): Abnormal Lexiscan nuclear myocardial perfusion imaging study demonstrating a small area of base inferolateral scar without superimposed ischemia. Hypokinesis of the base inferolateral wall. The LV ejection fraction is calculatedat 53%. Nonischemic Lexsican nuclear stress test Patient felt to be an acceptable moderate surgical risk. - Continue carvedilol without interruption - Hold losartan AM of surgery, resuming postoperatively as hemodynamics permit. - If taking semaglutide (was advised by Nephrology to discontinue on 09/14/2023) would stop 7 dyas prior to surgery documented in this encounter Plan of Treatment Upcoming Encounters Date Type Department Care Team (Late st Contact Info) Description 11/04/2023 10:40 AM EDT Office Visit Nephrology, [facility] [address] [facility] [place] [address] Dhruv Vegas MD [address] [place] [phone] 06/19/2024 12:50 PM EDT Office Visit Dermatology Jacqueline Mercer [place] [address] [facility] [place] [address] Savanna Jones PA-C [address] [facility] [place] [address] 08/30/2024 10:00 AM EDT Office Visit Cardiology, [facility] [address] [place] [phone] Tio Sutherland PA-C [address] [place] [id number] Scheduled Procedures Name Priority Associated Diagnoses Date/Ti me COLONOSCOPY FLEXIBLE PROXIMA L DIAGNOSTIC Recall Encounter for screening colonoscopy Health Maintenance Due Date Last Done Comments Adult Wellness Visit 2017 2016 DTap/Tdap Vaccines (2 - Td or Tdap) 12/13/2018 12/13/2008, 07/14/1999, 07/14/1999 Influenza Vaccine (FLU shot) (#1) 2023 11/18/2022, 11/09/2021, 11/08/2020, Additional history exists Depression Screening 11/19/2023 11/18/2022, 03/12/19 17 DXA Scan 07/20/2024 07/20/2022, 06/0 07/2022, 09/06/2017, Additional history exists Colonoscopy Discontinued 03/09/2017, 10/16, 06/24/2006 Colorectal Cancer Screening Discontinued Pneumococcal Vaccine: 65+ Years Completed 03/20/2017, 09/20/2013 COVID-19 Vaccine Completed 05/06/2023, 01/2023, 12/08/2020, Additional history exists Zoster Vaccines Discontinued 08/17/2023, 04/15, 07/14/2011 VITAMIN D LEVEL ONCE IN A LIFETIME-USE SMARTSET# [id number] Completed 10/06/2023, 12/13/2008 (Discussed) Cologuard Discontinued Fecal Occult Blood Test Discontinued HPV (Gardasil) Vaccine Aged Out No lo nger eligible based on patient's age to complete this topic Hepatitis B Vaccine Aged Out No longe r eligible based on patient's age to complete this topic MENINGOCOCCAL (MENACTRA/MENVEO) Aged Out No longer eligible based on patient's age to complete this topic Sigmoidoscopy Discontinued documented as of this encounter Medical Devices Not on filedocumented as of this encounter Advance Directives Documents on File Type Date Recorded Patient Wharfmaster Expl 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 Question Answer Comments Discussion of Advance Directives occurred with: Not Discussed * Full Code Date Activated Date Inactivated Comments 03/18/2017 11:23 AM 03/18/2017 11:48 AM This order r eflects the patients wishes and were consensually agreed upon. Question Answer Comments Discussion of Advance Directives occurred with: Not Discussed Care Teams Lidar Technician Relationship Specialty Start Date End Date Yury May ALEXI [place] [address] [place] [id number] PCP - General Physician Peanut Vendor 08/03/22 documented as of this encounter
--- OUTSIDE RECORDS SUMMARY | 2023-11-29 07:15 | External Medical Summary | Summary of Care ---
Author Name Unknown Organization [facility] Address [address] [facility] [place] [place] [address] Phone [phone] Care Team Providers Care Recorder Helper Gravity Prospecting Name Role Phone Yury Francesca Murcia PA-C Primary Care Provider [phone] Encounter Details Date Type Department Care Team (Late st Contact Info) Description 10/12/2023 Orders Only Unspecified Department Tio Sutherland PA-C [address] [place] [address] Allergies Active Allergy Reactions Criticality Noted Date Comments Amoxicillin Hives 05/02/1999 rash Penicillins Hives 04/17/2013 Sulfa Antibiotics Hives 05/02/1999 Hives documented as of this encounter (statuses as of 10/13/2023) Medications Medication Sig Dispensed Refills Start Date [...] MG/GM Transdermal Cream APPLY ONE ML TOPICALLY 6/7 NIGHTS 30 g 6 03/28/2023 Active Losartan [...] as of this encounter (statuses as of 10/13/2023) Active Problems Problem Noted Date Diagnosed Date [...] as of this encounter (statuses as of 10/13/2023) Resolved Problems Problem Noted Date Diagnosed Date Resolved Date 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 04/05/2017 Hilar lymphadenopathy 03/01/20172017 Other nonspecific abnormal c ardiovascular system function study 04/29/2004 10/31/2017 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 GERD (gastroesophageal reflux disease) 08/23/2019 documented as of this encounter (statuses as of 10/13/2023) Immunizations Name Administration Dates Next Due COVID-19 mRNA, LNP-s, No Pre serve, 2-Dose Series (Moderna) 04/18/2020,03/21/2020 COVID-19, MRNA-LNP, 23-24, P F, 30 MCG/0.3 mL, 12 YRS AND ABOVE, IM (PFIZER-Comirnaty) 05/06/2023 COVID-19, MRNA-LNP, 23-24, P F, 50 MCG/0.5 mL, 12 YRS AND ABOVE, IM (MODERNA-Spikevax) 11/25/2022 COVID-19, mRNA, LNP-s, PF, B ooster, 100mcg/0.5mg (Moderna) 12/08/2020 PPD 02/18/2010 Pneumococcal Conjugate Vacc, 13 Valent [...] Trivalen t, (IIV3), with Preserv, (Fluzone) 10/29/2014,01/07/2014,10/31/2012,02/16,12/01/2010,12/18/2009,12/13/2008 ,01/02/2008,12/21/2006,12/15/2005 TD, Preservative Free 07/14/1999 TDAP, Age 5 [...] No 03/18/2017 documented as of this encounter Plan of Treatment Upcoming Encounters Date Type Department Care Team (Late st Contact Info) Description 11/04/2023 10:40 AM EDT Office Visit Nephrology, [facility] [address] [place] [address] Dhruv Vegas MD [address] [place] [address] 06/19/2024 12:50 PM EDT Office Visit Dermatology Jacqueline [facility] [place] [address] [place] [address] Savanna Jones PA-C [address] [facility] [place] [address] 08/30/2024 10:00 AM EDT Office Visit Cardiology, [facility] [address] [place] [address] Tio Sutherland PA-C [address] [place] [address] Scheduled Procedures Name Priority Associated Diagnoses Date/Ti [...] D LEVEL ONCE IN A LIFETIME-USE SMARTSET# [id number] Completed 10/06/2023, 12/13/2008 (Discussed) Cologuard Discontinued Fecal [...] Not on filedocumented as of this encounter Procedures Procedure Name Priority Date/Time Associated Diagnosis Comments NM MYOCARDIAL PERFUSION IMAGING SPECT MULTIPLE STUDIES WITH PHARMACOLOGIC INTERVENTION Routine 10/12/2023 10:35 AM EDT documented in this encounter Results * NM MYOCARDIAL PERFUSION IMAGING SPECT MULTIPLE STUDIES WITH PHARMACOLOGIC INTERVENTION (10/12/2023 10:35 AM EDT) LEFT VENTRICULAR EJECTION FRACTION 53 % [facility] 10/12/2023 10:3 5 AM EDT Tio Sutherland PA-C RAD NUCLEAR MED [facility] documented in this encounter Advance Directives Documents on File Type Date Recorded Patient Pharmaceutical Salesperson Expl anation Power of Solution Manager 03/21/2017 POWER OF A TTORNEY [facility]-DURABLE POWER OF COMMERCIAL PROJECT MANAGER Power of Solution Manager 03/19/2017 POWER OF A TTORNEY * Full [...] Directives occurred with: Not Discussed Care Teams Recorder Helper Gravity Prospecting Relationship Specialty Start Date End Date Yury Francesca ALEXI Murcia [address] [place], [place] [address] PCP - General Physician Chief Minister 08/03/22 documented as of this encounter
--- OUTSIDE RECORDS SUMMARY | 2023-11-29 07:15 | External Medical Summary | Summary of Care ---
Author Name Unknown Organization [facility] Address [address] [place] [facility] [place] [place] [address] Phone [phone] Care Team Providers Care Rac Specialist Name Role Phone Francesca Cotton PA-C Primary Care Provider [phone] Reason for Visit * Reason Onset Date Comments Test Results 10/14/2023 Encounter Details Date Type Department Care Team (Late st Contact Info) Description 10/14/2023 Telephone Cardiology, [facility] [address] [facility] [place] [address] Tio Sutherland PA-C [address] [facility] [place] [address] Test Results Allergies Active Allergy Reactions Criticality [...] encounter Miscellaneous Notes * Telephone Encounter - Jake Pool LPN - 10/14/2023 3:18 PM EDT Please see MyChart reply. Sent patient report. * Telephone Encounter - Jake Pool LPN - 10/14/2023 2:41 PM EDT Sent patient a [employer] message to make aware. ----- Message from [...] 11/04/2023 10:40 AM EDT Office Visit Nephrology, [facility] [address] [facility] [place] [address] Dhruv Vegas MD [address] [place] [address] [place] [id number] 06/19/2024 12:50 PM EDT Office Visit Dermatology [facility] [address] [facility] [place] [address] Savanna Jones PA-C [address] [facility] [place] [address] 08/30/2024 10:00 AM EDT Office Visit Cardiology, [facility] [address] [place] [address] Tio Sutherland PA-C [address] [place] [address] Scheduled Procedures Name Priority Associated Diagnoses Date/Ti [...] D LEVEL ONCE IN A LIFETIME-USE SMARTSET# [id number] Completed 10/06/2023, 12/13/2008 (Discussed) Cologuard Discontinued Fecal [...] Documents on File Type Date Recorded Patient Spiritual Care Coordinator Expl anation Power of Catering Attendant 03/21/2017 POWER OF A TTORNEY [facility]-DURABLE POWER OF BULLDOZER ENGINEER Power of Catering Attendant 03/19/2017 POWER OF A TTORNEY * Full [...] Directives occurred with: Not Discussed Care Teams Rac Specialist Relationship Specialty Start Date End Date YuryMay ALEXI Murcia [address] [place] [address] PCP - General Physician Mold Maker Plaster 08/03/22 documented as of this encounter
--- OUTSIDE RECORDS SUMMARY | 2023-11-29 07:15 | External Medical Summary | Summary of Care ---
Author Name Unknown Organization [facility] Address [address] [place] [facility] [place] [address] Phone [phone] Care Team Providers Care Suction Plate Roller Hand Name Role Phone Francesca Cotton PA-C Primary Care Provider Reason for Visit * Reason Onset Date Comments Test Results 10/14/2023 Encounter Details Date Type Department Care Team (Late st Contact Info) Description 10/14/2023 Telephone Cardiology, [facility] [address] [facility] [place] [address] Tio Sutherland PA-C [address] [facility] [place] [address] Test Results Allergies Active Allergy Reactions Criticality [...] 10/14/2023 2:41 PM EDT Sent patient a Cop[employer] message to make aware. ----- Message from [...] 11/04/2023 10:40 AM EDT Office Visit Nephrology, [facility] [address] [facility] [place] [address] Dhruv Vegas MD [address] [facility] [place] [address] 06/19/2024 12:50 PM EDT Office Visit Dermatology [facility] [address] [facility] [place] [address] Savanna Jones [facility]-C [address] [facility] [address] 08/30/2024 10:00 AM EDT Office Visit Cardiology, [facility] [address] [place] [address] Tio Sutherland PA-C [address] [facility] [place] [address] Scheduled Procedures Name Priority Associated Diagnoses Date/Ti [...] D LEVEL ONCE IN A LIFETIME-USE SMARTSET# [id number] Completed 10/06/2023, 12/13/2008 (Discussed) Cologuard Discontinued Fecal [...] Documents on File Type Date Recorded Patient Cloth Bleaching Supervisor Expl anation Power of Axle Polisher 03/21/2017 POWER OF A TTORNEY [facility]-DURABLE POWER OF DIAMOND DRILLER HELPER Power of Axle Polisher 03/19/2017 POWER OF A TTORNEY * Full [...] Directives occurred with: Not Discussed Care Teams Suction Plate Roller Hand Relationship Specialty Start Date End Date YuryMay ALEXI Murcia [address] [place], [place] [address] PCP - General Physician Hydroelectric Plant Mechanical Engineer 08/03/22 documented as of this encounter
--- OUTSIDE RECORDS SUMMARY | 2023-11-29 07:15 | External Medical Summary | Summary of Care ---
Author Name Unknown Organization [facility] Address [address] [place] [facility] [place] [place] [address] Phone [phone] Care Team Providers Care Registered Phlebotomist Part Time Name Role Phone Francesca Cotton PA-C Primary Care Provider [phone] Reason for Visit * Reason Onset Date Comments Test Results 10/14/2023 Encounter Details Date Type Department Care Team (Late st Contact Info) Description 10/14/2023 Telephone Cardiology, [facility] [address] [facility] [place] [address] Tio Sutherland PA-C [address] [facility] [place] [address] Test Results Allergies Active Allergy Reactions Criticality [...] - 10/14/2023 3:18 PM EDT Please see Shipping Easyhart reply. Sent patient report. * Telephone Encounter - Jake Pool LPN - 10/14/2023 2:41 PM EDT Sent patient a [employer] message to make aware. ----- Message from [...] Nephrology, [facility] [address] [place] [address] Dhruv Vegas MD [address] [place] [address] 06/19/2024 12:50 PM EDT Office Visit Dermatology Jacqueline Mercer [place] [address] [facility] [place] [address] Savanna Jones PA-C [address] [facility] [place] [address] 08/30/2024 10:00 AM EDT Office Visit Cardiology, [facility] [address] [place] [address] Tio Sutherland PA-C [address] [place] [address] Scheduled Procedures Name Priority Associated Diagnoses Date/Ti [...] D LEVEL ONCE IN A LIFETIME-USE SMARTSET# [id number] Completed 10/06/2023, 12/13/2008 (Discussed) Cologuard Discontinued Fecal [...] Documents on File Type Date Recorded Patient Regional Flatbed Truck Driver Expl anation Power of Website Admin 03/21/2017 POWER OF A TTORNEY [facility]-DURABLE POWER OF MEETING COORDINATOR Power of Website Admin 03/19/2017 POWER OF A TTORNEY * Full [...] Directives occurred with: Not Discussed Care Teams Registered Phlebotomist Part Time Relationship Specialty Start Date End Date Yury May ALEXI Murcia [address] [place] [address] PCP - General Physician Application Helper 08/03/22 documented as of this encounter
[2023-11-29] MEDS ORDERED: PROPOFOL IV EMULSION 10 MG/ML 20 ML VIAL IV ONE (07:46)
[2023-11-29] MEDS ORDERED: MIDAZOLAM HCL 1 MG/ML 2ML VIAL ONE ×2 (07:46→07:47)
[2023-11-29] MEDS ORDERED: fentaNYL citrate PF 100 MCG/2 ML VIAL IV PRN (08:09)
[2023-11-29] MEDS ORDERED: ONDANSETRON INJ 2 MG/ML 2 ML VIAL IV PRN (08:09)
[2023-11-29] MEDS ORDERED: ATROPINE SULFATE 0.1 MG/ML 10ML SYR IV PRN (08:09)
[2023-11-29] MEDS ORDERED: ePHEDrine sulfate 50 MG/ML AMP IV PRN (08:09)
[2023-11-29] MEDS ORDERED: fentaNYL citrate PF 100 MCG/2 ML VIAL ONE ×2 (08:21→09:09)
--- NOTE | 2023-11-29 08:31 | History & Physical Bridge Note ---
Date of Service November 29, 2023 History & Physical Bridge Note I have examined the patient, reviewed the History & Physical and in the interval since the performance of the History & Physical I have noted the following changes of clinical significance: no changes noted
[2023-11-29] MEDS: ceFAZolin 2000MG 2,000 MG/15 ML SYR IV SCH (08:44)
[2023-11-29] MEDS ORDERED: ePHEDrine sulfate 50 MG/5 ML SYR ONE (09:11)
[2023-11-29] MEDS ORDERED: ONDANSETRON INJ 2 MG/ML 2 ML VIAL ONE (09:11)
[2023-11-29] MEDS ORDERED: DEXAMETHASONE SOD INJ 4 MG/ML VIAL ONE (09:32)
[2023-11-29] MEDS: ROPIV 0.5% 246mg, Ketorolac 30mg, EPINEPHrine 0.5mg in NSS INFIL SCH (09:34)
[2023-11-29] MEDS: ORTHO JOINT ANESTHETIC ONE (09:35)
[2023-11-29] MEDS: TRANEXAMIC ACID 1,000 MG **IV Intra-op IV SCH (09:40)
--- NOTE | 2023-11-29 10:41 | Operative Report ---
PG Post Operative Report Pre & Post Diagnosis Operation Date: 11/29/23 08:50 Pre-Op Diagnosis: Right Knee Degenerative Joint Disease Post-Op Diagnosis: Right Knee Degenerative Joint Disease I identified the patient and participated in the time-out.: Yes Procedure Operation Date: 11/29/23 08:50 Actual Procedures p Right Total Knee Arthroplasty(Right) - Oliver Hill MD Surgeon Oliver Hill MD Shake Splitter Dayo Galan PA-C Estimated Blood Loss 50 Findings Consistent with Post-Op Diagnosis Operative findings revealed advanced right knee DJD. She had extensive grade 4 [id number] disease of the medial and patellofemoral compartments. Moderate- sized joint effusion. Fairly osteopenic throughout. Specimens Right knee sent for pathology. Anesthesia Type Spinal MAC Complications none Disposition Accompanied Patient To Recovery: No Indications Patient is a 72-year-old female has had a several year history of increasing right knee pain discomfort. She been through extensive conservative therapy wh ich became less successful over time. X-rays show advanced right knee arthritis. She elected proceed with total knee arthroplasty. The patient does have an apparent nickel allergy so we used the Islas & Nephew zirconium total knee arthroplasty system. Description of Procedure Operative implants consist of: 1. Islas & Nephew size 5 right journey 2 posterior stabilized femoral component. 2. Islas & Nephew size 3 journey 2 tibial tray. 3. 9 mm posterior stabilized polyethylene insert. 4. 29 x 9 all poly patella. The patient was taken the op room, identified, placed on the operating table in supine position. All contact areas were appropriately padded. IV antibiotics tried by anesthesia team. Spinal anesthetic and adductor canal block had been provided in the holding area. A Monsalve catheter was placed in sterile fashion. Right Tetrick was then placed in the right lower extremities then prepped draped in usual sterile fashion. The right leg was elevated exsanguinated with use of an Esmarch and a turn was placed at 300 mmHg. An anterior approach to the right knee was then performed to longitudinal incision centered over the patella. Sharp dissection was got through subcutaneous tissue down the extensor mechanism. A medial parapatellar arthrotomy incision was made. Some subperiosteal dissection was carried out medially. The fat pad was dissected from Neath patella tendon. Lateral patellofemoral ligament was released. Patella subluxated laterally. The knee was flexed. The osteophytes taken off distal femur. The ACL and PCL were then released from the distal femur the tibia subluxated anteriorly. The external treatment LYMErix then placed on the anterior face of the tibia and adjusted 8 mm medially. Proximal tibial cut was made remove about 2 mm of bone from the medial side. The tibia was sized to a size 3. Attention drawn the femur. The distal femur was under sharp drop with intramedullary canal was suction. A right 5 degree valgus cutting guide was placed. This femoral cutting block was pinned in place. Distal femoral cutting block was adjusted to take an additional 2 mm of bone off distal femur. The distal femur cut was made. The femur was then sized and we sized this to a size 5. The AP cutting block was pinned parallel to the epicondylar axis which was 5 degrees of external rotati on. The anterior cord, anterior, anterior chamfer, posterior cut, posterior chamfer cuts were made. The knee was then flexed. The remnants of the medial lateral menisci were excised. The osteophytes taken off the posterior aspect of the femur. The femoral component was placed. The box cutting guide was placed and the box cut was made with the milling device followed by the punch. The cochlear component was placed. The knee was flexed. The tibial tray was pinned in Laurie external rotation and the drill and stem punch used. Defect in proximal tibia for the tibial tray. The knee was then trialed and the 9 mm insert fit most appropriately. Attention drawn the patella. Patellofemoral soft tissues. Patella thickness measured 19 mm in thickness was cut down to 13. It was sized to a size 29 patella. The lug holes were drilled for the 29 patella. Lateral osteophytes removed. Patella button was placed. Knee was taken through range of motion and the patella tracked nicely with no thumbs test. Attention drawn to placing permanent components. Nupathe all trial components were removed. Bone plug was placed in the distal femur limit blood loss. Double batch Palacos G cement was mixed. A Islas & Nephew size 5 right posterior stabilized femoral component was then placed followed by a size 3 tibial tray, 9 mm posterior Byce polyethylene insert, and a 29 x 9 all poly patella. The knee was brought out into full extension till cement hardened. Final cement check was then performed. Pericapsular tissues were injected with total 100 cc of Ortho mix. Patient did receive 1 g tranexamic acid. The tourniquet was then let down for a total tourniquet time 56 minutes. Hemostasis to reduce electrocautery. Extensor Meclomen closed with combination 1 PDS suture #1 Vicryl suture in a [id number] fashion. Extensor Meclomen checked found to be intact with subcutaneous tissue then closed with 2 Dexon suture in buried interrupted fashion skin was closed skin destiny. Leg was then cleaned and dried and sterile dressed with Xeroform, 4 fours, sterile cast padding and Julien bandage were applied. Patient then transferred to the recovery room in stable condition. Patient tolerated the procedure well and there were no complications. Dayo Galan, my physician graduate assistant athletic trainer, was present for the entire procedure. His assistance was essential and required for appropriate patient positioning, prepping and draping, surgical exposure, performing the technical details of the operation, placement the implants, closure of the wound, and placement of the sterile bandage. I attest to the content of the Intraoperative Record and any orders documented therein. Any exceptions are noted below.
--- NOTE | 2023-11-29 10:58 | XRay Report ---
XR knee RT 1 or 2V routine CLINICAL HISTORY: Postoperative evaluation. COMPARISON: Right knee radiographs September 01, 2023. FINDINGS: Alignment of the total right knee arthroplasty is anatomic. There is no periprosthetic fra cture or unexpected radiopaque foreign body. There are skin destiny. IMPRESSION: Expected findings following total right knee arthroplasty. ACT 112: Negative or not required by law. Electronically signed by: Dex Ferreira M.D. 11/29/2023 10:57 AM
[2023-11-29] MEDS ORDERED: bisacodyL 10 MG SUPP PR PRN (11:21)
[2023-11-29] MEDS ORDERED: ALUMINUM/MAGNESIUM SUSP 30 ML UDC PO PRN (11:21)
[2023-11-29] MEDS ORDERED: HYDROmorphone INJ 0.5 MG/0.5 ML SYR IV PRN (11:21)
[2023-11-29] MEDS ORDERED: METOCLOPRAMIDE HCL INJ 5 MG/ML 2 ML VIAL IV PRN (11:21)
[2023-11-29] MEDS ORDERED: MAGNESIUM HYDROXIDE SUSP 30 ML UDC PO PRN (11:21)
[2023-11-29] MEDS ORDERED: NALOXONE HCL 0.4 MG/1 ML VIAL/CARP IV PRN (11:21)
[2023-11-29] MEDS: KETOROLAC TROMETHAMINE 15 MG/ML VIAL IV SCH (11:52)
[2023-11-29] MEDS: SODIUM CHLORIDE 0.9% 1,000 ML IV SCH (11:52)
[2023-11-29] MEDS: ARTIFICIAL TEARS OP SCH (12:03)
[2023-11-29] MEDS: oxyCODONE HCL IR 5 MG TAB (IMMEDIATE RELEASE) PO PRN (12:03)
--- NOTE | 2023-11-29 13:26 | Anesthesiology Progress Note ---
Date of Service November 29, 2023 Anesthesia Post Procedure Vital Signs Vital Signs: Temp Pulse Pulse Resp BP BP Pulse Ox 11/29/23 12:00 36.3 C L 68 16 124/70 100 11/29/23 11:10 36.4 C L 65 14 130/72 97 11/29/23 11:00 62 19 132/74 98 11/29/23 10:50 65 11 L 128/74 99 11/29/23 10:40 69 15 130/69 100 11/29/23 10:31 36.1 C L 72 16 141/78 H 100 11/29/23 07:03 36.7 C 78 18 145/92 H 100 O2 Del Method O2 Flow Rate 11/29/23 12:00 Room Air 11/29/23 11:10 Room Air 11/29/23 11:00 Room Air 11/29/23 10:50 Oxymask 4 11/29/23 10:40 Oxymask 4 11/29/23 10:31 Oxymask 4 11/29/23 07:03 Room Air Pain Intensity Right Knee: Pain Intensity: 3 Transfer of Care Handoff Completed per policy Notes Mental Status: alert / awake / arousable and participated in evaluation Patient Amnestic to Procedure: Yes Nausea / Vomiting: adequately controlled Pain: adequately controlled Airway Patency, RR, SpO2: stable & adequate BP & HR: stable & adequate Hydration State: stable & adequate Anesthetic Complications: no major complications apparent and Pt Satisfied with anesthetic care
[2023-11-29] MEDS: ceFAZolin 1000MG 1,000 MG/7.5 ML SYR IV SCH (16:53)
[2023-11-29] MEDS: TRANEXAMIC ACID / 0.7% NACL 1,000 MG/100 ML BAG IV SCH (16:53)
[2023-11-29] MEDS: ASCORBIC ACID 500 MG TAB PO SCH (16:54)
[2023-11-29] MEDS: ONDANSETRON INJ 2 MG/ML 2 ML VIAL IV PRN (17:13)
[2023-11-29] MEDS ORDERED: SENNA 8.6 MG TAB PO SCH (21:00)
[2023-11-29] MEDS ORDERED: ESTROGEN TOP SCH (21:00)
[2023-11-29] MEDS ORDERED: PROGESTERONE TOP SCH (21:00)
[2023-11-29] MEDS: carvediloL 6.25 MG TAB PO SCH (21:07)
[2023-11-29] MEDS: LOSARTAN POTASSIUM 50 MG TAB PO SCH (21:07)
[2023-11-29] MEDS: SENNA 8.6 MG TAB PO SCH (21:07)
[2023-11-29] MEDS: ASPIRIN 81 MG ECTAB PO SCH (21:07)
[2023-11-29] MEDS: DOCUSATE SODIUM 100 MG CAP PO SCH (21:07)
[2023-11-29] MEDS: ROSUVASTATIN CALCIUM 20 MG TAB PO SCH (22:14)
[2023-11-30 04:08] VITALS: RESP 16; O2SAT 100
--- NOTE | 2023-11-30 07:03 | Orthopedic Progress Note ---
Date of Service November 30, 2023 Assessment & Plan (1) Status post total right knee replacement: Pain controlled dvt prophylaxis: teds, scd's, aspirin PT/OT wbat d/c planning: home with home health today after therapy labs pending will discuss with Dr Hill Subjective 73 year old patient POD 1 from right tka. Doing fairly well. Pain is manageable. Has been out of bed some. No other complaints. Review of Systems All systems reviewed & are unremarkable except as noted in HPI & below. Physical Exam .alert and oriented. NAD VSS labs pending Right leg: dressing clean, dry, intact. Able to do straight leg raise, dorsiflex/plantarflex, NVI Results & Data Results & Data Laboratory Results . Diagnostic Findings . PG Care Time/CCT Total # of Minutes Spent Total Time Spent with Patient: Total time spent is greater than 50% in coordination of care (as documented) at patient's floor/unit and/or counseling patient: Coding Level of Care Code 76559 Post Operative Follow-Up Diagnoses Status post total right knee replacement Z96.651
[2023-11-30 07:40] LABS: Hematocrit (blood only) 25.4 % (37.0-47.0); Hemoglobin 8.6 g/dl (12.0-16.0); Mean Corpuscular Hgb Conc 33.9 g/dL (32.0-36.0); Mean Corpuscular Volume 85.5 fL (80.0-100.0); Mean Platelet Volume 8.5 fL (9.4-12.4); Platelet Count 270 K/uL (130-400); RDW Coefficient of Variation 13.7 % (11.5-14.5); RDW Standard Deviation 42.5 fL (36.4-46.3); Red Blood Count 2.97 M/uL (4.20-5.40); White Blood Count 14.29 K/ul (4.8-10.8)
[2023-11-30 07:45] VITALS: BP 109/71; PULSE 70; TEMP 97.9
[2023-11-30] MEDS: dexAMETHasone 10 MG in SYRINGE 0 ML IV SCH (07:46)
[2023-11-30 08:07] LABS: Calcium 7.3 mg/dl (8.6-10.3); Creatinine Clr Calc Pharmacy 33.8 ml/min; Potassium 4.8 mmol/L (3.5-5.1)
[2023-11-30] MEDS: CHOLECALCIFEROL 25 MCG (1000 UNITS) TAB PO SCH (08:52)
[2023-11-30] MEDS: MULTIVITAMIN TAB PO SCH (08:52)
[2023-11-30] MEDS ORDERED: NON-FORMULARY MEDICATION (Mv-Mn-Lutein-Zeax-Bilber-Hb277 [Macular Health Formula] 5-1-7.5 PO SCH (09:00)
[2023-11-30] MEDS ORDERED: NON-FORMULARY MEDICATION (Biotin 1 mg Capsule) PO SCH (09:00)
== END 2023-11-30 12:05 | disposition home health service (06) ==
LOC: 3E 06:33 → ASU 06:33
DX: Z88.0 Allergy status to penicillin; Z91.048 Other nonmedicinal substance allergy status; Z79.899 Other long term (current) drug therapy; Z91.040 Latex allergy status; I10 Essential (primary) hypertension; Z88.2 Allergy status to sulfonamides; Q24.9 Congenital malformation of heart, unspecified; M17.11 Unilateral primary osteoarthritis, right knee; D64.9 Anemia, unspecified; Z79.82 Long term (current) use of aspirin